=== PATIENT | female | born 1925 | race Caucasian/White ===

== ENCOUNTER 2016-03-31 09:56 | Emergency (ER) | payer MEDICARE, OTHER ==
[~2016-03-31 09:56] MED LIST: /ESOM40CA; /ESOM40CA PO; /INSU7030 SC; /RISE35TA PO; /WARF3TA; ALDA25TA PO; ALDA25TA4; ALDA25TA4 OR; ALDA25TA4 PO; AMLO10TA OR; ASPI81TA83; BEN1.4DI EX; CALC12502; CALC12502 OR; CHLO5CA PO; GAS-80CH PO; GLUC5TAB3; HUMULIN N; HUMULIN N SC; HYDR10TAB PO; ICAPCAP PO; IMIP25TA2 PO; IMMODIUM; IMMODIUM PO; INSUH10VL SC; INSUNSD SC; LIDO5DIS EXT; LOTREL; LOTRISONE TOP; MIRALEX PO; MULTCAP PO; MULTIVIT; NASONEX; NEXI40CA PO; NORV5TAB PO; NYSTATIN OINT TOP; PERC5TAB8 PO; PRIL40CA PO; SIME125C OR; TOFR25TA PO; TRAM50TA2 OR; TYLE325T5 PO; ULTR50TA PO; VITAMIN B COMPLE1 PO; [UNRECOGNIZED DRUG - CODE] PO; apresoline PO; centrum silver PO; namenda PO
--- NOTE | 2016-03-31 11:08 | REP ---
LUMBAR SPINE, FIVE VIEWS: HISTORY: Paresthesias. There is no acute fracture. The intervertebral discs are decreased in height consistent with disc degeneration. Osteophytes are present on L3 through S1. There is narrowing of the L3-4 through L5-S1 facet joints. There are 3 mm of grade 1 spondylolisthesis of L4 on 5. The bony structure is osteopenic. There is scoliosis convex to the right. IMPRESSION: Degenerative change as described above. Signed by Roby Marie MD 03/31/2016 11:13 A
[2016-03-31] MEDS ORDERED: ACETAMINOPHEN 325 MG TAB As Ordered ONE (12:26)
--- NOTE | 2016-03-31 14:50 | EDDOCDS ---
Nurse's Notes [facility] Name: Perla Bhatia Age: 89 yrs Sex: Female : 1925 Arrival Date: 03/31/2016 Time: 09:56 Bed TR8 Private MD: Diagnosis: Spinal stenosis, lumbosacral region Presentation: 03/31 10:07 Presenting complaint: EMS states: Right leg pain/numbness since last night. Is able to mcp move leg. Adult Sepsis Screening: The patient does not have new or worsening altered mentation. Patient's respiratory rate is less than 22. Systolic blood pressure is greater than 100. Patient has a qSOFA score of 0- Negative Sepsis Screen. Suicide/Homicide risk assessment- the patient denies having any suicidal and/or homicidal ideations and does not present with any other emotional, behavioral or mental health complaints. Status: Patient is not a service representative or dependent. Transition of care: patient was not received from another setting of care. 10:07 Acuity: KOFI Level [address] [facility] 10:07 Method Of Arrival: Ambulance [facility] Triage Assessment: 10:20 General: Appears uncomfortable, Behavior is cooperative. Pain: Denies pain. mcp Neurological: No deficits noted. Respiratory: Airway is patent Respiratory effort is even, unlabored. Derm: Skin is pink, warm & dry. Musculoskeletal: Circulation, motion, and sensation intact pedal pulse strong, right leg warm to touch. Pt states leg is numb. Historical: - Allergies: no known allergies; - Home Meds: 1. amlodipine 5 mg Oral tab 1 tab twice daily 2. hydrochlorothiazide/spironolactone 25/25 2 tab daily 3. hydralazine 10 mg Oral tab 1 tab 2 times per day 4. tramadol 50 mg Oral tab 1 tab every 6 hours 5. librium 10mg daily 6. BenGay Ultra Strength topical topical three times a day 7. Tylenol 325 mg oral tab 2 tabs every 4-6 hours 8. Humulin N 18units in am 15 units at night Sub-Q 9. Nystatin Topical as needed - PMHx: Hypertension; Diabetes - IDDM: controlled; kidney failure; Dementia; Sleep Apnea w/ CPAP; Spinal Stenosis; - PSHx: ; Colon Resection; Cholecystectomy; Tonsillectomy; Hysterectomy; Carpal Tunnel Repair- Left; Appendectomy; Cataract Surgery- Bilateral; - The history from nurses notes was reviewed: and elements of the historical information I have obtained differs from that reported to nursing. - Social history: Smoking status: Patient states was never smoker of tobacco. No barriers to communication noted, The patient speaks fluent Icelandic. - : The pt / caregiver states he / she is not on anticoagulants. Home medication list is obtained from family members. - Hospitalizations: : No recent hospitalization is reported. - Exposure Risk Screening:: None identified. - Immunization history:: All immunizations up-to-date. - Family history: Not pertinent. - Social history:: the patient is a non-smoker, the patient does not drink alcohol. Screenin:19 Screening information is obtained from the patient, family members. Fall risk: At risk kcs due to age, gait disturbance, The following interventions are performed due to a positive Fall Risk Screen: Fall Risk is added to Special Handling on the patient Summary Screen. A Fall Risk Bracelet was applied to the patient. Side Rails are placed in the up position. A Call Mendoza is given with instruction to call for help when getting out of bed. Fall Alert bracelet is placed on the patient. Assistance ADL's: requires no assistance with activities of daily living. Abuse/DV Screen: The patient / caregiver reports he/she is: not in a situation that causes fear, pain or injury. Nutritional screening: No deficits noted. Advance Directives: Currently, there is a health care proxy, Daughter - Kinza Bhatia. There is an active DNR order but there is no copy available at this time. There is no living will. There is an active Power of Professor Of Biblical Studies, Michael Butterfield - [id number]. home support is adequate. 12:06 Fall Risk. kcs Assessment: 11:25 General: Appears in no apparent distress, comfortable, Behavior is appropriate for age, ms18 cooperative, pleasant. Pain: Denies pain. Neurological: Level of Consciousness is awake, alert, obeys commands, Oriented to person, place, time, Moves all extremities. Speech is normal, Facial symmetry appears normal, Reports that her R leg feels cold and heavy. Pt's R leg feels warm and the pt is able to move her R leg with no problems. Respiratory: Airway is patent Respiratory effort is even, unlabored. Derm: Skin is pink, warm & dry. 11:35 General: Pt ambulated with walker with no assistance. Pt was able to get out of bed, ms18 walk with a walker, and get back in bed with no problems at this time. Pt in no acute distress. Will continue to monitor pt. Dr. Tejada witnessed pt ambulate with walker. . 12:32 General: Appears in no apparent distress, comfortable, Behavior is appropriate for age, ms18 cooperative, pleasant. General: Physical therapy is here to evaluate the pt. Pain: Location: right leg Pain currently is 10 out of 10 on a pain scale. Neurological: Level of Consciousness is awake, alert, obeys commands, Oriented to person, place, time, PT having trouble remembering her daughter's birthday, but knows her own. Pt has a history of dementia and daughter states that it seems to be worsening since she has been here. Explained to daughter that it could be the different environment and new people.. Respiratory: No deficits noted. Derm: Skin is pink, warm & dry. 13:34 General: Appears in no apparent distress, comfortable, Behavior is appropriate for age, ms18 cooperative, pleasant. Neurological: Level of Consciousness is awake, alert, obeys commands. Respiratory: Airway is patent Respiratory effort is even, unlabored. Derm: Skin is pink, warm & dry. normal. Vital Signs: 10:09 BP 190 / 81; Pulse 72; Resp 18; Temp 96.0(O); Pulse Ox 97% on R/A; Weight 81.65 kg (R); dem1 Height 5 ft. 3 in. (160.02 cm) (R); Pain 8/10; 11:25 BP 169 / 76; Pulse 63; Resp 18; Pulse Ox 95% on R/A; Pain 0/10; ms18 13:39 BP 199 / 83 (auto/); ms18 13:40 Pulse 68 MON; Pulse Ox 96% ; ms18 13:40 Temp 98.6(O); ms18 10:09 Body Mass Index 31.89 (81.65 kg, 160.02 cm) [facility] Vitals: 10:09 Log In Time N/A - ambulance arrival. [facility] ED Course: 09:57 Patient visited by Kitty Montana, [employer]. deg 09:57 Patient moved to Waiting deg 09:58 Patient moved to 5 deg 10:10 Patient visited by Thelma Meehan. dem1 10:10 Triage Initiated mcp 10:10 Pt greeted and oriented to ED. Patient advised of names of staff involved in care, [facility] location of call mendoza, wait times and NPO status. Patient has correct armband on for positive identification. Bed in low position. Call light in reach. Side rails up X2. 10:16 Johnny Tejaad MD is Attending Physician. pc 10:22 Patient visited by Perla Gonzales RN. mcp 10:25 Patient visited by Johnny Tejada MD. pc 11:13 Spine. Lumbosacral, Complete Returned. EDMS 11:14 Patient visited by Katerine Matthews RN. ms18 11:15 Patient visited by Jayla Blanco. lr2 11:15 Assisted with bedpan. lr2 11:16 The patient / caregiver is instructed regarding the plan of care and ED course. Report kcs given to Katerine Matthews RN. 11:17 Katerine Matthews RN is Primary Nurse. ms18 11:25 Property :Personal belongings accompany Pt. ms18 11:35 Patient visited by Katerine Matthews RN. ms18 11:55 Spine. Lumbosacral, Complete Returned. EDMS 12:21 Patient visited by Thelma Meehan. dem1 12:21 Assisted with bedpan. Cleaned of incontinence. Linen changed. dem1 12:31 Patient visited by Katerine Matthews RN. ms18 12:59 [facility] Payment Agreement was scanned into [employer] and attached to record. jp5 13:16 Patient visited by Thelma Meehan. dem1 13:16 Diet: Patient given regular meal. dem1 13:22 Monet Reddy MD is Referral Physician. pc 13:33 Patient visited by Katerine Matthews RN. ms18 13:34 No IV's were initiated during this patient's visit. No procedures done that require ms18 assistance. 13:57 Patient moved to [place] [id number] Administered Medications: 12:31 Drug: Acetaminophen 650 mg [acetaminophen 325 mg tablet (2 tabs)] Route: PO; ms18 Order Results: Radiology Order: Spine. Lumbosacral, Complete Test: Spine. Lumbosacral, Complete REASON FOR EXAMINATION: radicular paraesthesias ; LUMBAR SPINE, FIVE VIEWS:; ; HISTORY: Paresthesias.; ; There is no acute fracture. The intervertebral discs are decreased in height; consistent with disc degeneration. Osteophytes are present on L3 through S1.; There is narrowing of the L3-4 through L5-S1 facet joints. There are 3 mm of; grade 1 spondylolisthesis of L4 on 5. The bony structure is osteopenic. There; is scoliosis convex to the right.; ; IMPRESSION:; ; Degenerative change as described above.; ; ; Signed by; Roby Marie MD 03/31/2016 11:13 A; Outcome: 13:22 Discharge ordered by Provider. 13:34 Discharge Assessment: Patient awake and alert. obeys commands, patient administered ms18 narcotics - no. The following High Risk Discharge criteria are identified: None. Discharged to home via ambulance, with family. Condition: good Condition: stable Condition: improved. Discharge instructions given to family, Instructed on discharge instructions, follow up and referral plans. Demonstrated understanding of instructions, Pt was receptive of discharge instructions/ teaching. No special radiology studies were completed. 14:49 Patient left the ED. ms18 Signatures: Dispatcher [employer] EDMS Johnny Tejada MD MD pc Sleeman, Kacey, RN RN Kitty Lagos, [employer] Unit deg Perla Gonzales RN RN Thelma Bell Mallory, RN RN ms18 Vivian Parrish Laura lr2 Corrections: (The following items were deleted from the chart) 10:10 10:09 BP 190 / 81; Pulse 72bpm; Resp 18bpm; Pulse Ox 97% RA; Temp 96.0F Oral; Height 5 dem1 ft. 3 in.; Pain 8/10; dem1 MTDD
--- NOTE | 2016-03-31 14:50 | EDDOCDS ---
Physician Documentation [facility] Name: Perla Bhatia Age: 89 yrs Sex: Female : 1925 Arrival Date: 03/31/2016 Time: 09:56 Bed TR8 Private MD: Disposition: 03/31 13:20 Critical Care: Critical care not applicable. pc Disposition: 03/31/16 13:22 Discharged to Home/Self Care. Impression: Spinal stenosis, lumbosacral region. - Condition is Stable. - Discharge Instructions: Paresthesia. - Medication Reconciliation, Local Pharmacy Hours form. - Follow up: Monet Reddy MD; When: Call to arrange an appointment; Reason: Continuance of care. - Problem is an acute exacerbation. - Symptoms have improved. HPI: 10:30 This 89 yrs old Female presents to ER via Ambulance with complaints of Leg pc Pins and [place]. 10:30 The history is obtained from the patient. She has been having trouble walking on her pc right leg for a few days, without known injury. She describes it as numb and cold, but it is warm to touch and she withdraws to pain. She states it feels like it is asleep. 10:31 At their worst, the symptoms were moderate. In the emergency department, the symptoms pc are unchanged. The patient has experienced similar episodes in the past, several times. The patient has not recently seen a physician. Historical: - Allergies: no known allergies; - Home Meds: 1. amlodipine 5 mg Oral tab 1 tab twice daily 2. hydrochlorothiazide/spironolactone 25/25 2 tab daily 3. hydralazine 10 mg Oral tab 1 tab 2 times per day 4. tramadol 50 mg Oral tab 1 tab every 6 hours 5. librium 10mg daily 6. BenGay Ultra Strength topical topical three times a day 7. Tylenol 325 mg oral tab 2 tabs every 4-6 hours 8. Humulin N 18units in am 15 units at night Sub-Q 9. Nystatin Topical as needed - PMHx: Hypertension; Diabetes - IDDM: controlled; kidney failure; Dementia; Sleep Apnea w/ CPAP; Spinal Stenosis; - PSHx: ; Colon Resection; Cholecystectomy; Tonsillectomy; Hysterectomy; Carpal Tunnel Repair- Left; Appendectomy; Cataract Surgery- Bilateral; - The history from nurses notes was reviewed: and elements of the historical information I have obtained differs from that reported to nursing. - Social history: Smoking status: Patient states was never smoker of tobacco. No barriers to communication noted, The patient speaks fluent Portuguese. - : The pt / caregiver states he / she is not on anticoagulants. Home medication list is obtained from family members. - Hospitalizations: : No recent hospitalization is reported. - Exposure Risk Screening:: None identified. - Immunization history:: All immunizations up-to-date. - Family history: Not pertinent. - Social history:: the patient is a non-smoker, the patient does not drink alcohol. ROS: 10:33 All systems are negative except as listed. pc Exam: 10:33 General Appearance: no acute distress, alert. pc 10:33 EENT: normal eye inspection, ears, nose and throat normal, pharynx normal, mucous membranes moist 10:33 Neck: The exam reveals no acute abnormalities. ROM is normal and painless. No nuchal rigidity is noted.. 10:33 Respiratory: no respiratory distress, normal breath sounds. 10:33 CVS: regular pulse rate, regular rhythm, normal S1 and S2, no murmurs, strong peripheral pulses. 10:33 Abdomen: soft, non-tender, no organomegaly, normal bowel sounds. 10:33 Back: normal inspection. 10:33 Skin: skin color is normal, warm, dry. 10:33 Extremities: grossly normal except: noted in the right leg and left leg: mild stasis dermatitis of both legs, with 1+ pitting edema, mild erythema. The right leg is warm to touch, equal to the left. Pulses are palpable both LEs. 10:33 Neuro: oriented x 3, cranial nerves normal as tested, no motor deficits, no sensory deficits. 10:33 Psych: normal mood. Vital Signs: 10:09 BP 190 / 81; Pulse 72; Resp 18; Temp 96.0(O); Pulse Ox 97% on R/A; Weight 81.65 kg / dem1 180.01 lbs (R); Height 5 ft. 3 in. (160.02 cm) (R); Pain 8/10; 11:25 BP 169 / 76; Pulse 63; Resp 18; Pulse Ox 95% on R/A; Pain 0/10; ms18 13:39 BP 199 / 83 (auto/); ms18 13:40 Pulse 68 MON; Pulse Ox 96% ; ms18 13:40 Temp 98.6(O); ms18 10:09 Body Mass Index 31.89 (81.65 kg, 160.02 cm) dem1 MDM: 10:26 Spine. Lumbosacral, Complete Ordered. EDMS 10:33 Differential Diagnosis: paresthesia of RLE with normal neurological and vascular exam; pc known spinal stenosis. Plan: imaging. 11:23 Spine. Lumbosacral, Complete Reviewed. pc 11:23 Ambulate Patient to Assess Patient Safety ordered. pc 12:01 Spine. Lumbosacral, Complete Reviewed. pc 12:03 PHYSICAL THERAPY EVAL ONLY+PT ordered. EDMS 12:24 Acetaminophen Tablet 650 mg PO once ordered. ms18 12:36 CONSISTENT CARBOHYDRATE+DIET ordered. EDMS 12:59 [facility] Payment Agreement was scanned into [employer] and attached to record. jp5 12:59 Financial registration complete. jp5 13:20 Data reviewed: old medical records, vital signs, nurses notes, all radiology studies pc and available results. Test interpretation: X-RAY - interpreted by Radiologist and personally reviewed, LS-Spine DDD, no acute findings. The patient has been re-examined and re-evaluated. The clinical presentation did not require any ED treatment or interventions. ED course: She is able to walk with a walker, and after a PT eval and confirmation that she could walk with a walker and navigate the stairs as in her home, she was able to be discharged home safely.. Disposition: The historical points, examination findings, and any diagnostic results supporting the provided diagnosis, were discussed with the patient or legal guardian. The need for outpatient follow up with the provider listed on their discharge instructions was discussed. They were encouraged to return to [facility], or the nearest ED, if symptoms worsen/persist, or for any other questions/concerns. Administered Medications: 12:31 Drug: Acetaminophen 650 mg [acetaminophen 325 mg tablet (2 tabs)] Route: PO; ms18 Signatures: Dispatcher [employer] EDMS Johnny Tejada MD MD pc Peters, Mary, RN RN mcp Smith, Mallory, RN RN ms18 Vivian Parrish jp5 The chart was reviewed and I authenticate all verbal orders and agree with the evaluation and treatment provided.Corrections: (The following items were deleted from the chart) 10:32 10:30 She has been having trouble walking on her right leg for a few days, without pc known injury. pc Attachments: 12:59 [facility] [place] jp5 MTDD
[2016-04-01] MEDS ORDERED: BENCRE TOP (14:44)
[2016-04-01] MEDS ORDERED: HYDR10TAB PO (14:47)
[2016-04-01] MEDS ORDERED: NYST100024 TOP (14:47)
[2016-04-01] MEDS ORDERED: INSUNSD SC ×2 (14:47)
[2016-04-01] MEDS ORDERED: CHLO10CA PO (14:48)
[2016-04-01] MEDS ORDERED: REFR0.5D8 OU (14:48)
--- NOTE | 2016-04-02 15:50 | EDDOCDS ---
Physician Documentation [facility] Name: Perla Bhatia Age: 89 yrs Sex: Female : 1925 Arrival Date: 03/31/2016 Time: 09:56 Bed TR8 Private MD: Disposition: 03/31 13:20 Critical Care: Critical care not applicable. pc Disposition: 03/31/16 13:22 Discharged to Home/Self Care. Impression: Spinal stenosis, lumbosacral region. - Condition is Stable. - Discharge Instructions: Paresthesia. - Medication Reconciliation, Local Pharmacy Hours form. - Follow up: Monet Reddy MD; When: Call to arrange an appointment; Reason: Continuance of care. - Problem is an acute exacerbation. - Symptoms have improved. HPI: 10:30 This 89 yrs old Female presents to ER via Ambulance with complaints of Leg pc Pins and [place]. 10:30 The history is obtained from the patient. She has been having trouble walking on her pc right leg for a few days, without known injury. She describes it as numb and cold, but it is warm to touch and she withdraws to pain. She states it feels like it is asleep. 10:31 At their worst, the symptoms were moderate. In the emergency department, the symptoms pc are unchanged. The patient has experienced similar episodes in the past, several times. The patient has not recently seen a physician. Historical: - Allergies: no known allergies; - Home Meds: 1. amlodipine 5 mg Oral tab 1 tab twice daily 2. hydrochlorothiazide/spironolactone 25/25 2 tab daily 3. hydralazine 10 mg Oral tab 1 tab 2 times per day 4. tramadol 50 mg Oral tab 1 tab every 6 hours 5. librium 10mg daily 6. BenGay Ultra Strength topical topical three times a day 7. Tylenol 325 mg oral tab 2 tabs every 4-6 hours 8. Humulin N 18units in am 15 units at night Sub-Q 9. Nystatin Topical as needed - PMHx: Hypertension; Diabetes - IDDM: controlled; kidney failure; Dementia; Sleep Apnea w/ CPAP; Spinal Stenosis; - PSHx: ; Colon Resection; Cholecystectomy; Tonsillectomy; Hysterectomy; Carpal Tunnel Repair- Left; Appendectomy; Cataract Surgery- Bilateral; - The history from nurses notes was reviewed: and elements of the historical information I have obtained differs from that reported to nursing. - Social history: Smoking status: Patient states was never smoker of tobacco. No barriers to communication noted, The patient speaks fluent Japanese. - : The pt / caregiver states he / she is not on anticoagulants. Home medication list is obtained from family members. - Hospitalizations: : No recent hospitalization is reported. - Exposure Risk Screening:: None identified. - Immunization history:: All immunizations up-to-date. - Family history: Not pertinent. - Social history:: the patient is a non-smoker, the patient does not drink alcohol. ROS: 10:33 All systems are negative except as listed. pc Exam: 10:33 General Appearance: no acute distress, alert. pc 10:33 EENT: normal eye inspection, ears, nose and throat normal, pharynx normal, mucous membranes moist 10:33 Neck: The exam reveals no acute abnormalities. ROM is normal and painless. No nuchal rigidity is noted.. 10:33 Respiratory: no respiratory distress, normal breath sounds. 10:33 CVS: regular pulse rate, regular rhythm, normal S1 and S2, no murmurs, strong peripheral pulses. 10:33 Abdomen: soft, non-tender, no organomegaly, normal bowel sounds. 10:33 Back: normal inspection. 10:33 Skin: skin color is normal, warm, dry. 10:33 Extremities: grossly normal except: noted in the right leg and left leg: mild stasis dermatitis of both legs, with 1+ pitting edema, mild erythema. The right leg is warm to touch, equal to the left. Pulses are palpable both LEs. 10:33 Neuro: oriented x 3, cranial nerves normal as tested, no motor deficits, no sensory deficits. 10:33 Psych: normal mood. Vital Signs: 10:09 BP 190 / 81; Pulse 72; Resp 18; Temp 96.0(O); Pulse Ox 97% on R/A; Weight 81.65 kg / dem1 180.01 lbs (R); Height 5 ft. 3 in. (160.02 cm) (R); Pain 8/10; 11:25 BP 169 / 76; Pulse 63; Resp 18; Pulse Ox 95% on R/A; Pain 0/10; ms18 13:39 BP 199 / 83 (auto/); ms18 13:40 Pulse 68 MON; Pulse Ox 96% ; ms18 13:40 Temp 98.6(O); ms18 10:09 Body Mass Index 31.89 (81.65 kg, 160.02 cm) dem1 MDM: 10:26 Spine. Lumbosacral, Complete Ordered. EDMS 10:33 Differential Diagnosis: paresthesia of RLE with normal neurological and vascular exam; pc known spinal stenosis. Plan: imaging. 11:23 Spine. Lumbosacral, Complete Reviewed. pc 11:23 Ambulate Patient to Assess Patient Safety ordered. pc 12:01 Spine. Lumbosacral, Complete Reviewed. pc 12:03 PHYSICAL THERAPY EVAL ONLY+PT ordered. EDMS 12:24 Acetaminophen Tablet 650 mg PO once ordered. ms18 12:36 CONSISTENT CARBOHYDRATE+DIET ordered. EDMS 12:59 [facility] Payment Agreement was scanned into [facility] and attached to record. jp5 12:59 Financial registration complete. jp5 13:20 Data reviewed: old medical records, vital signs, nurses notes, all radiology studies pc and available results. Test interpretation: X-RAY - interpreted by Radiologist and personally reviewed, LS-Spine DDD, no acute findings. The patient has been re-examined and re-evaluated. The clinical presentation did not require any ED treatment or interventions. ED course: She is able to walk with a walker, and after a PT eval and confirmation that she could walk with a walker and navigate the stairs as in her home, she was able to be discharged home safely.. Disposition: The historical points, examination findings, and any diagnostic results supporting the provided diagnosis, were discussed with the patient or legal guardian. The need for outpatient follow up with the provider listed on their discharge instructions was discussed. They were encouraged to return to [facility], or the nearest ED, if symptoms worsen/persist, or for any other questions/concerns. Administered Medications: 12:31 Drug: Acetaminophen 650 mg [acetaminophen 325 mg tablet (2 tabs)] Route: PO; ms18 Signatures: Dispatcher [employer] EDMS Johnny Tejada MD MD pc Peters, Mary, RN RN mcp Smith, Mallory, RN RN [id number] Vivian Parrish jp5 The chart was reviewed and I authenticate all verbal orders and agree with the evaluation and treatment provided.Corrections: (The following items were deleted from the chart) 10:32 10:30 She has been having trouble walking on her right leg for a few days, without pc known injury. pc Attachments: 12:59 [facility] Payment Agreement jp5 Chart Complete MTDD
--- NOTE | 2016-04-02 15:50 | EDDOCDS ---
Nurse's Notes [facility] Name: Perla Bhatia Age: 89 yrs Sex: Female : 1925 Arrival Date: 03/31/2016 Time: 09:56 Bed TR8 Private MD: Diagnosis: Spinal stenosis, lumbosacral region Presentation: 03/31 10:07 Presenting complaint: EMS states: Right leg pain/numbness since last night. Is able to mcp move leg. Adult Sepsis Screening: The patient does not have new or worsening altered mentation. Patient's respiratory rate is less than 22. Systolic blood pressure is greater than 100. Patient has a qSOFA score of 0- Negative Sepsis Screen. Suicide/Homicide risk assessment- the patient denies having any suicidal and/or homicidal ideations and does not present with any other emotional, behavioral or mental health complaints. 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 Transition of care: patient was not received from another setting of care. 10:07 Acuity: KOFI Level 3 [facility] 10:07 Method Of Arrival: Ambulance [facility] Triage Assessment: 10:20 General: Appears uncomfortable, Behavior is cooperative. Pain: Denies pain. mcp Neurological: No deficits noted. Respiratory: Airway is patent Respiratory effort is even, unlabored. Derm: Skin is pink, warm & dry. Musculoskeletal: Circulation, motion, and sensation intact pedal pulse strong, right leg warm to touch. Pt states leg is numb. Historical: - Allergies: no known allergies; - Home Meds: 1. amlodipine 5 mg Oral tab 1 tab twice daily 2. hydrochlorothiazide/spironolactone 25/25 2 tab daily 3. hydralazine 10 mg Oral tab 1 tab 2 times per day 4. tramadol 50 mg Oral tab 1 tab every 6 hours 5. librium 10mg daily 6. BenGay Ultra Strength topical topical three times a day 7. Tylenol 325 mg oral tab 2 tabs every 4-6 hours 8. Humulin N 18units in am 15 units at night Sub-Q 9. Nystatin Topical as needed - PMHx: Hypertension; Diabetes - IDDM: controlled; kidney failure; Dementia; Sleep Apnea w/ CPAP; Spinal Stenosis; - PSHx: ; Colon Resection; Cholecystectomy; Tonsillectomy; Hysterectomy; Carpal Tunnel Repair- Left; Appendectomy; Cataract Surgery- Bilateral; - The history from nurses notes was reviewed: and elements of the historical information I have obtained differs from that reported to nursing. - Social history: Smoking status: Patient states was never smoker of tobacco. No barriers to communication noted, The patient speaks fluent Belarusian. - : The pt / caregiver states he / she is not on anticoagulants. Home medication list is obtained from family members. - Hospitalizations: : No recent hospitalization is reported. - Exposure Risk Screening:: None identified. - Immunization history:: All immunizations up-to-date. - Family history: Not pertinent. - Social history:: the patient is a non-smoker, the patient does not drink alcohol. Screenin:19 Screening information is obtained from the patient, family members. Fall risk: At risk kcs due to age, gait disturbance, The following interventions are performed due to a positive Fall Risk Screen: Fall Risk is added to Special Handling on the patient Summary Screen. A Fall Risk Bracelet was applied to the patient. Side Rails are placed in the up position. A Call Mendoza is given with instruction to call for help when getting out of bed. Fall Alert bracelet is placed on the patient. Assistance ADL's: requires no assistance with activities of daily living. Abuse/DV Screen: The patient / caregiver reports he/she is: not in a situation that causes fear, pain or injury. Nutritional screening: No deficits noted. Advance Directives: Currently, there is a health care proxy, Daughter - Kinza Bhatia. There is an active DNR order but there is no copy available at this time. There is no living will. There is an active Power of Sampler [employer]active Waste, Michael Butterfield - [id number]. home support is adequate. 12:06 Fall Risk. kcs Assessment: 11:25 General: Appears in no apparent distress, comfortable, Behavior is appropriate for age, ms18 cooperative, pleasant. Pain: Denies pain. Neurological: Level of Consciousness is awake, alert, obeys commands, Oriented to person, place, time, Moves all extremities. Speech is normal, Facial symmetry appears normal, Reports that her R leg feels cold and heavy. Pt's R leg feels warm and the pt is able to move her R leg with no problems. Respiratory: Airway is patent Respiratory effort is even, unlabored. Derm: Skin is pink, warm & dry. 11:35 General: Pt ambulated with walker with no assistance. Pt was able to get out of bed, ms18 walk with a walker, and get back in bed with no problems at this time. Pt in no acute distress. Will continue to monitor pt. Dr. Tejada witnessed pt ambulate with walker. . 12:32 General: Appears in no apparent distress, comfortable, Behavior is appropriate for age, ms18 cooperative, pleasant. General: Physical therapy is here to evaluate the pt. Pain: Location: right leg Pain currently is 10 out of 10 on a pain scale. Neurological: Level of Consciousness is awake, alert, obeys commands, Oriented to person, place, time, PT having trouble remembering her daughter's birthday, but knows her own. Pt has a history of dementia and daughter states that it seems to be worsening since she has been here. Explained to daughter that it could be the different environment and new people.. Respiratory: No deficits noted. Derm: Skin is pink, warm & dry. 13:34 General: Appears in no apparent distress, comfortable, Behavior is appropriate for age, ms18 cooperative, pleasant. Neurological: Level of Consciousness is awake, alert, obeys commands. Respiratory: Airway is patent Respiratory effort is even, unlabored. Derm: Skin is pink, warm & dry. normal. Vital Signs: 10:09 BP 190 / 81; Pulse 72; Resp 18; Temp 96.0(O); Pulse Ox 97% on R/A; Weight 81.65 kg (R); dem1 Height 5 ft. 3 in. (160.02 cm) (R); Pain 8/10; 11:25 BP 169 / 76; Pulse 63; Resp 18; Pulse Ox 95% on R/A; Pain 0/10; ms18 13:39 BP 199 / 83 (auto/); ms18 13:40 Pulse 68 MON; Pulse Ox 96% ; ms18 13:40 Temp 98.6(O); ms18 10:09 Body Mass Index 31.89 (81.65 kg, 160.02 cm) [facility] Vitals: 10:09 Log In Time N/A - ambulance arrival. [facility] ED Course: 09:57 Patient visited by Kitty Montana, Collections And Archives Director. deg 09:57 Patient moved to Waiting deg 09:58 Patient moved to 5 deg 10:10 Patient visited by Thelma Meehan. dem1 10:10 Triage Initiated mcp 10:10 Pt greeted and oriented to ED. Patient advised of names of staff involved in care, [facility] location of call mendoza, wait times and NPO status. Patient has correct armband on for positive identification. Bed in low position. Call light in reach. Side rails up X2. 10:16 Johnny Tejada MD is Attending Physician. pc 10:22 Patient visited by Perla Gonzales RN. mcp 10:25 Patient visited by Johnny Tejada MD. pc 11:13 Spine. Lumbosacral, Complete Returned. EDMS 11:14 Patient visited by Katerine Matthews RN. ms18 11:15 Patient visited by Jayla Blanco. lr2 11:15 Assisted with bedpan. lr2 11:16 The patient / caregiver is instructed regarding the plan of care and ED course. Report kcs given to Katerine Matthews RN. 11:17 Katerine Matthews RN is Primary Nurse. ms18 11:25 Property :Personal belongings accompany Pt. ms18 11:35 Patient visited by Katerine Matthews RN. ms18 11:55 Spine. Lumbosacral, Complete Returned. EDMS 12:21 Patient visited by Thelma Meehan. dem1 12:21 Assisted with bedpan. Cleaned of incontinence. Linen changed. dem1 12:31 Patient visited by Katerine Matthews RN. ms18 12:59 [facility] Payment Agreement was scanned into [email or web address] and attached to record. jp5 13:16 Patient visited by Thelma Meehan. dem1 13:16 Diet: Patient given regular meal. dem1 13:22 Monet Reddy MD is Referral Physician. pc 13:33 Patient visited by Katerine Matthews RN. ms18 13:34 No IV's were initiated during this patient's visit. No procedures done that require ms18 assistance. 13:57 Patient moved to [place] [id number] Administered Medications: 12:31 Drug: Acetaminophen 650 mg [acetaminophen 325 mg tablet (2 tabs)] Route: PO; ms18 Order Results: Radiology Order: Spine. Lumbosacral, Complete Test: Spine. Lumbosacral, Complete REASON FOR EXAMINATION: radicular paraesthesias ; LUMBAR SPINE, FIVE VIEWS:; ; HISTORY: Paresthesias.; ; There is no acute fracture. The intervertebral discs are decreased in height; consistent with disc degeneration. Osteophytes are present on L3 through S1.; There is narrowing of the L3-4 through L5-S1 facet joints. There are 3 mm of; grade 1 spondylolisthesis of L4 on 5. The bony structure is osteopenic. There; is scoliosis convex to the right.; ; IMPRESSION:; ; Degenerative change as described above.; ; ; Signed by; Roby Marie MD 03/31/2016 11:13 A; Outcome: 13:22 Discharge ordered by Provider. 13:34 Discharge Assessment: Patient awake and alert. obeys commands, patient administered ms18 narcotics - no. The following High Risk Discharge criteria are identified: None. Discharged to home via ambulance, with family. Condition: good Condition: stable Condition: improved. Discharge instructions given to family, Instructed on discharge instructions, follow up and referral plans. Demonstrated understanding of instructions, Pt was receptive of discharge instructions/ teaching. No special radiology studies were completed. 14:49 Patient left the ED. ms18 Signatures: Dispatcher [employer] EDMS Johnny Tejada MD MD pc Sleeman, Kacey, RN RN Kitty Lagos, Collections And Archives Director Unit deg Perla Gonzales RN RN Thelma Bell Mallory, RN RN ms18 Vivian Parrish Laura lr2 Corrections: (The following items were deleted from the chart) 10:10 10:09 BP 190 / 81; Pulse 72bpm; Resp 18bpm; Pulse Ox 97% RA; Temp 96.0F Oral; Height 5 dem1 ft. 3 in.; Pain 8/10; dem1 Chart Complete MTDD
== END 2016-03-31 14:49 | disposition home or self-care (01) ==
LOC: M ED 09:56
DX: M48.07 Spinal stenosis, lumbosacral region (principal); I12.9 Hypertensive chronic kidney disease with stage 1 through stage 4 chronic kidney disease, or unspecified chronic kidney disease; E11.9 Type 2 diabetes mellitus without complications; N18.9 Chronic kidney disease, unspecified; G47.30 Sleep apnea, unspecified; F03.90 Unspecified dementia, unspecified severity, without behavioral disturbance, psychotic disturbance, mood disturbance, and anxiety; Z79.4 Long term (current) use of insulin; Z79.899 Other long term (current) drug therapy

== ENCOUNTER 2016-04-01 09:27 | Inpatient (IN) | payer MEDICARE, OTHER ==
[~2016-04-01] VITALS: Ht 157.5 cm; Wt 76.8 kg
[2016-04-01 10:37] LABS: BASO % 0.5 % (0.0-1.0); EOS # 0.1 K/mm3 (0.0-0.50); EOS % 0.7 % (0.0-3.0); LARGE UNSTAINED CELL # 0.2 K/mm3 (0.0-0.4); LARGE UNSTAINED CELL % 2.3 % (0.0-4.0); LYMPH # 1.1 K/mm3 (1.5-4.5); LYMPH % 11.6 % (24.0-44.0); MEAN CORPUSCULAR HEMOGLOBIN 31.1 pg (27.0-33.0); MEAN CORPUSCULAR HGB CONC 32.3 g/dl (32.0-36.5); MEAN CORPUSCULAR VOLUME 96.5 fl (80.0-96.0); MONO # 0.5 K/mm3 (0.0-0.8); MONO % 4.8 % (0.0-5.0); NEUTROPHILS # 7.6 K/mm3 (1.8-7.7); NEUTROPHILS % 80.2 % (36.0-66.0); PLATELET COUNT, AUTOMATED 341 k/mm3 (150-450); RED CELL DISTRIBUTION WIDTH 12.8 % (11.5-14.5); WHITE BLOOD COUNT 9.4 K/mm3 (4.0-10.0)
[2016-04-01 10:45] LABS: INR 0.99
[2016-04-01 10:54] LABS: CALCIUM LEVEL 8.5 MG/DL (8.8-10.2); CREATININE FOR GFR 1.44 MG/DL (0.55-1.02); GLOMERULAR FILTRATION RATE 36.6 (>32); POTASSIUM SERUM 4.3 MEQ/L (3.5-5.1)
--- NOTE | 2016-04-01 11:08 | REP ---
Clinical: Chest pain . Comparison: 09/01/2014 . Findings: The mediastinum and cardiac silhouette are stable and within normal limits for portable technique. The lung dawson are clear without acute consolidation, effusion, or pneumothorax. Skeletal structures are intact. Impression: Normal portable chest x-ray Signed by Rohit Hidalgo MD 04/01/2016 10:59 A
--- NOTE | 2016-04-01 11:28 | REP ---
CT HEAD WITHOUT CONTRAST: HISTORY: Facial numbness. COMPARISON: 02/25/2014. Areas of decreased attenuation are present in the periventricular white matter. This represents small vessel ischemic disease. There is no intraparenchymal hemorrhage, mass or midline shift. The ventricular system and cortical sulci are dilated consistent with mild volume loss. There is no extracerebral collection. The visualized sinuses are clear. IMPRESSION: 1. Small vessel ischemic disease.2. Mild volume loss. Signed by Roby Marie MD 04/01/2016 11:43 A
[2016-04-01] MEDS ORDERED: BENCRE TOP (14:44)
[2016-04-01] MEDS ORDERED: NYST100024 TOP (14:47)
[2016-04-01] MEDS ORDERED: HYDR10TAB PO (14:47)
[2016-04-01] MEDS ORDERED: INSUNSD SC ×2 (14:47)
[2016-04-01] MEDS ORDERED: REFR0.5D8 OU (14:48)
[2016-04-01] MEDS ORDERED: CHLO10CA PO (14:48)
[2016-04-01] MEDS ORDERED: DEXTROSE 50% 50 ML SYRINGE IV PRN (15:45)
[2016-04-01] MEDS ORDERED: GLUCAGON FOR INJ 1 MG VIAL (J1610) SC PRN (15:45)
[2016-04-01] MEDS ORDERED: GLUCOSE 4 GM CHEW TABLET PO PRN (15:45)
[2016-04-01] MEDS ORDERED: ASPIRIN 325 MG TAB PO ONE (17:00)
[2016-04-01 18:40] VITALS: BP 138/58
[2016-04-01] MEDS ORDERED: traMADol 50 MG TAB As Ordered ONE (18:40)
[2016-04-01] MEDS ORDERED: ASPIRIN 325 MG TAB As Ordered ONE (18:40)
[2016-04-01] MEDS ORDERED: HumaLOG INSULIN (NovoLOG) PER UNIT As Ordered ONE (18:42)
[2016-04-01] MEDS: traMADol 50 MG TAB PO SCH (18:43)
[2016-04-01] MEDS: HumaLOG INSULIN (NovoLOG) PER UNIT SC SCH ×2 (18:45→20:39)
--- NOTE | 2016-04-01 19:00 | REP ---
Clinical: Right-sided weakness with acute cerebral infarction. Technique: Carrasquillo scale and color Doppler evaluation using linear high frequency transducer Findings: Two-dimensional carrasquillo scale and color images demonstrate intimal thickening of the bilateral common carotid arteries along with mixed plaque material in the left common carotid artery and within the right carotid bulb and proximal internal carotid artery. Normal laminar flow is appreciated without significant narrowing. Color Doppler interrogation demonstrates normal arterial wave patterns and velocities with no significant spectral broadening. Normal flow direction is appreciated in the bilateral vertebral arteries. RIGHT (cm/s) LEFT (cm/s) ICA peak systolic velocity 83.4 70.9 ICA diastolic velocity 13.2 12.1 ECA peak systolic velocity 98.8 65.6 CCA peak systolic velocity 74.5 114.9 ICA/CCA ratio 1.12 0.62 Impression: Based on set standards narrowing falls within the less than 50% range bilaterally (right greater than left). Signed by Rohit Hidalgo MD 04/01/2016 06:51 P
--- NOTE | 2016-04-01 19:10 | REPUSA ---
CLINICAL HISTORY: Facial numbness. TECHNIQUE: MRI of the brain was performed utilizing multiple sequences in axial, coronal and sagittal planes without IV contrast material. FINDINGS: Note is made of multiple focal areas of restricted diffusion involving left thalamus at left occipita l lobe. This includes a large area in the occipital lobe measuring approximately 15 mm. This is josefina tible with lacunar infarcts likely of embolic nature. The sella and parasellar region are unremarkable in appearance. The corpus callosum and cerebellar to nsils are of normal configuration and position. There are no intra or extra-axial collections. There is no mass effect or midline shift. There is no evidence of hematoma formation. There is no hydroceph alus. The visualized arterial structures demonstrate normal appearing flow voids. The seventh and eighth ne rve bundles are visualized and are unremarkable in appearance. Foci of T2/FLAIR hyperintensity are noted in the bilateral periventricular and subcortical white neeraj er compatible with mild chronic white matter ischemic changes. Generalized proportionate dilatation of ventricles and sulci is present compatible with age-appropria te parenchymal atrophy. IMPRESSION: 1. Multiple focal areas of restricted diffusion involving left thalamus at left occipital lobe. This includes a larger subcortical area in the occipital lobe measuring approximately 15 mm. This is comp atible with acute lacunar infarcts likely of embolic nature. 2. Generalized age-appropriate parenchymal atrophy. 3. Mild chronic white matter microvascular ischemic changes. Discussed with Dr. Braun. Thank you for your kind referral of this patient. We appreciate the opportunity to participate in thi s patient's care.
--- NOTE | 2016-04-01 19:20 | REPUSA ---
CLINICAL HISTORY: FACIAL NUMBNESS TECHNIQUE: Three dimensional [id number] angiography is performed of the [place]. The mele dy was performed without IV contrast agent. FINDINGS: The supraclinoid portions of the internal carotid arteries are of normal shape. The normal bifurcation is seen. The middle cerebral arteries are unremarkable in appearance. The posterior circu lation is visualized and shows no evidence of occlusion or aneurysm formation. The basilar tip is see n and shows no aneurysm formation. There is no evidence of beading to suggest vasculitis. IMPRESSION: MRA of the [place] is within normal limits. Thank you for your kind referral of this patient.
[2016-04-01 19:32] VITALS: BP 154/72
--- NOTE | 2016-04-01 19:54 | ECGEPIP ---
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
[2016-04-01] MEDS: **hydrALAZINE** 10 MG TAB PO SCH (20:43)
[2016-04-02] VITALS (7 sets, daily range): BP systolic 136–176; BP diastolic 64–82
[2016-04-02] MEDS: traMADol 50 MG TAB PO SCH ×5 (00:06→20:24)
[2016-04-02] MEDS ORDERED: amLODIPine 5 MG TAB PO SCH ×2 (01:07→09:00)
[2016-04-02] MEDS ORDERED: amLODIPine 5 MG TAB As Ordered ONE (01:07)
[2016-04-02 06:53] LABS: MEAN CORPUSCULAR HEMOGLOBIN 31.8 pg (27.0-33.0); MEAN CORPUSCULAR HGB CONC 33.3 g/dl (32.0-36.5); MEAN CORPUSCULAR VOLUME 95.7 fl (80.0-96.0); RED CELL DISTRIBUTION WIDTH 12.9 % (11.5-14.5); WHITE BLOOD COUNT 8.4 K/mm3 (4.0-10.0)
[2016-04-02 06:54] LABS: CALCIUM LEVEL 8.9 MG/DL (8.8-10.2); CREATININE FOR GFR 1.21 MG/DL (0.55-1.02); GLOMERULAR FILTRATION RATE 44.7 (>32)
[2016-04-02] MEDS ORDERED: HumaLOG INSULIN (NovoLOG) PER UNIT As Ordered ONE ×2 (07:40→12:17)
[2016-04-02] MEDS: HumaLOG INSULIN (NovoLOG) PER UNIT SC SCH ×4 (07:47→20:20)
--- NOTE | 2016-04-02 07:58 | HPEPDOC ---
General Date of Admission Apr 01, 2016 at 15:16 Primary Care Physician: MARQUISE ARMENDARIZ MD Attending Physician: ROMEO ECHAVARRIA DO Chief Complaint The patient is a 89-year-old female admitted with a reason for visit of Rt Sided Weakness. Source: Patient, Family History of Present Illness Pt is a 89 y/o F with a pmhx of dementia, HTN, IDDM-controlled, colon and uterine cancer, CKD, presenting with 2 day history of RLE numbness and R face, RUE numbness beginning this AM. The pt was seen yesterday (03/31) at [facility] ED for RLE numbness and discharged with a ddx of spinal stenosis. She returned today because she had additional R face and RUE numbness. This has never happened before. Pt describes this sensation as her leg and arms feeling heavy and denies any pain, tingling, or burning. Pt denies any trauma or illness around the onset of her RLE numbness and states she was just standing in the kitchen reaching when her leg suddenly felt heavy and numb. The pt reports still being able to move her legs and walk. At baseline, the pt uses a walker to ambulate but is able to easily complete all of her ADLs. Pt reports the numbness was initially her entire leg but is now just numb on the lateral aspect of her RLE. Pt denies any associated LOC, seizures, chest pain, palpitations, dyspnea, syncope, changes in vision, facial droop, unsteadiness, light-headedness. Pt has urge incontinence at baseline. Pt also has c/o of R face and RUE numbness that began acutely this AM. Her daughter reports that the pt had associated slurring of speech that has since improved. Pt reports full ROM of hands but describes her arms feeling like a "stone." Home Medications Scheduled (Bengay Greaseless 10-15 %) 1 Cre Cre CRE TOP TID (Reported) APPLY TO BACK Acetaminophen (Tylenol) 325 Mg Tab 650 MG PO TID (Reported) Amlodipine Besylate (Norvasc) 5 Mg Tab 5 MG PO DAILY (Reported) Aspirin (Aspirin) 325 Mg Tab 325 MG PO DAILY Carboxymethylcellulose Sodium (Refresh Tears) 0.5 % Scott 0.5 % OU BID (Reported ) Chlordiazepoxide (Chlordiazepoxide HCl) 10 Mg Cap 10 MG PO DAILY (Reported) Hctz/Spironolactone (Aldactazide 25-25 mg) 1 Tab Tab 2 TAB PO DAILY (Reported) Hydralazine HCl (Hydralazine HCl) 10 Mg Tab 10 MG PO BID (Reported) Insulin Human NPH (Humulin N) 1 Units/0.01 Ml Susp 18 UNITS SC DAILY (Reported ) Insulin Human NPH (Humulin N) 1 Units/0.01 Ml Susp 15 UNITS SC QPM (Reported) Nystatin (Nystatin Powder) 100,000 Unit/Gm Pow 0 TOP DAILY (Reported) APPLY UNDER BREASTS Rosuvastatin (Crestor) 10 Mg Tab 20 MG PO QHS Tramadol HCl (Ultram) 50 Mg Tab 50 MG PO QID (Reported) Allergies Coded Allergies: Penicillins (Unverified Allergy, Unknown, 05/16/12) Penicillins Cross Reactors (Unverified Allergy, Unknown, 05/16/12) Amoxicillin (Unverified Adverse Reaction, Intermediate, RASH, 03/07/14) Past Medical History Medical History Essential hypertension, 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, urinating cancer status post hysterectomy, dementia, BILL on CPAP, insulin-dependent diabetes mellitus, osteopenia, hypertension, GERD, bilateral DVTs in 2009, overactive bladder with incontinence, anxiety, depression, CKD stage III with baseline creatinine 1.1, IBS Surgical History Tonsillectomy 1940, appendectomy 1939, 194 and 1953, wrist surgery 1987, hysterectomy 1981, colon resection 1998, cholecystectomy 1997, carpal tunnel release in 2002, bladder surgery in 2010 Social History * Smoker: non-smoker Alcohol: denies Drugs: denies Recent Travel/Sick Contacts: Denies: Recent sick contacts Psychosocial History: Anxiety Review of Symptoms Constitutional: Reports: Weakness, Denies: Chills, Fever, Malaise Eyes: Denies: Pain, Vision change ENT: Denies: Dysphagia, Head Aches Skin: Denies: Rash Pulmonary: Denies: Cough, Dyspnea Cardiovascular: Denies: Chest Pain, Lt Headedness, Palpitations Gastrointestinal: Denies: Abdominal Pain, Constipation, Diarrhea, Nausea, Vomiting Genitourinary: Reports: Frequency, Incontinence (urge incontinence (chronic)), Denies: Dysuria Hematologic: Denies: Bruising Musculoskeletal: Denies: Arm Pain, Back Pain, Leg Pain, Muscle Pain, Neck Pain Neurological: Reports: Confusion, Numbness, Weakness, Denies: Change in speech Psych: Reports: Anxiety, Mood Normal Physical Examination General Exam: Positive: Alert, Cooperative, No Acute Distress Eye Exam: Positive: Conjunctiva & lids normal, EOMI, PERRLA, Negative: Sclera icteric ENT Exam: Positive: Atraumatic, Mucous membr. moist/pink, Pharynx Normal Neck Exam: Positive: Supple, Negative: thyromegaly Chest Exam: Positive: Clear to auscultation, Normal air movement, Negative: Diminished, Rales, Rhonchi, Wheezing Heart Exam: Positive: Murmurs, Normal S1, Normal S2, Rate Normal, Regular Rhythm, Rubs Abdomen Exam: Positive: Normal bowel sounds, Soft, Tenderness, Negative: Hepatospenomegaly Extremity Exam: Positive: Normal pulses, Negative: Clubbing, Edema Skin Exam: Positive: Nl turgor and temperature Neuro Exam: Positive: Cranial Nerves 3-12 NL, Normal Speech (slightly tangential), Normal Tone, Other (Dysdidochokinesia negative, proprioception intact bilaterally in LE, finger to nose test negative, ), Reflexes 2+ (patellar , achilles ), Sensation Intact, Strength at 5/5 X4 ext Psych Exam: Positive: Mental status NL, Mood NL Vital Signs Vital Signs Label Value Date Time Patient Temperature 99.4 degrees F 04/01/161839 Temperature Source Tympanic 04/01/161839 Pulse 63 04/01/161839 Respiratory Rate 18 bpm 04/01/161839 Blood Pressure Assessment 138/58 (84) 04/01/161839 Bedside Pulse Oximetry 95 % 04/01/161839 Laboratory Data Labs 24H Laboratory Tests 2 04/01/16 10:25: Activated Partial Thromboplast Time 37.9H, Anion Gap 7L, White Blood Count 9.4, Red Blood Count 3.99L, Hemoglobin 12.4, Hematocrit 38.5, Mean Corpuscular Volume 96.5H, Mean Corpuscular Hemoglobin 31.1, Mean Corpuscular Hemoglobin Concent 32.3, Red Cell Distribution Width 12.8, Platelet Count 341, Neutrophils (%) (Auto) 80.2H, Lymphocytes (%) (Auto) 11.6L, Monocytes (%) (Auto) 4.8, Eosinophils (%) (Auto) 0.7, Basophils (%) (Auto) 0.5, Neutrophils # (Auto) 7.6, Lymphocytes # (Auto) 1.1L, Monocytes # (Auto) 0.5, Eosinophils # (Auto) 0.1, Basophils # (Auto) 0.0, Blood Urea Nitrogen 30H, Creatinine 1.44H, Sodium Level 139, Potassium Level 4.3, Chloride Level 102, Carbon Dioxide Level 30, Calcium Level 8.5L, Glomerular Filtration Rate 36.6, Large Unclassified Cells # 0.2, Large Unclassified Cells % 2.3, Prothromb Time International Ratio 0.99, Prothrombin Time 13.2 04/01/16 12:01: Urine Amorphous Sediment , Urine Appearance CLEAR, Urine Color YELLOW, Urine pH 6.0, Urine Specific [place] 1.019, Urine Protein NEGATIVE, Urine Glucose (UA) 1+ H, Urine Ketones NEGATIVE, Urine Urobilinogen 0.2, Urine Bilirubin NEGATIVE, Urine Leukocyte Esterase 1+H, Urine Bacteria (Auto) 1+H, Urine Blood NEGATIVE, Urine Calcium Carbonate Cryst(Auto) , Urine Calcium Oxalate Cryst (Auto) , Urine Calcium Phosphate Carin (Auto) , Urine Cellular Casts , Urine Cystine Crystals , Urine Granular Casts (Auto) , Urine Hyaline Casts (Auto) 1, Urine Leucine Crystals , Urine Mucus (Auto) SMALL, Urine Nitrite NEGATIVE, Urine Oval Fat Bodies (Auto) , Urine RBC (Auto) 5H, Urine Renal Epithelial Cells , Urine Sperm (Auto) , Urine Squamous Epithelial Cells 0, Urine Transitional Epithelial Cells , Urine Trichomonas (Auto) , Urine Triple Phosphate Cryst (Auto) , Urine Tyrosine Crystals , Urine Uric Acid Crystals (Auto) , Urine WBC (Auto) 9H, Urine Waxy Casts (Auto) , Urine Yeast-Like Cells (Auto) CBC/BMP Laboratory Tests 04/01/16 10:25 Calcium Level 8.5 L, Red Blood Count 3.99 L, Mean Corpuscular Volume 96.5 H, Mean Corpuscular Hemoglobin 31.1, Mean Corpuscular Hemoglobin Concent 32.3, Red Cell Distribution Width 12.8, Neutrophils (%) (Auto) 80.2 H, Lymphocytes (%) ( Auto) 11.6 L, Monocytes (%) (Auto) 4.8, Eosinophils (%) (Auto) 0.7, Basophils (% ) (Auto) 0.5, Neutrophils # (Auto) 7.6, Lymphocytes # (Auto) 1.1 L, Monocytes # (Auto) 0.5, Eosinophils # (Auto) 0.1, Basophils # (Auto) 0.0 Microbiology Microbiology 04/01/16 Urine Culture, Received Pending Problems (1) Numbness on right side Status: Acute Problem Text: Pt has 2 day history of RLE numbness and weakness and 1 day hx of R face and RUE numbness with associated slurring of speech without pain. The pt has hx of IDDM and HTN which are both well controlled per her daughter, the primary caregiver. Noncontrast CT of head was performed in the ED that showed no evidence of a acute CVA. On physical exam, pt had no focal neurologic signs and her sensation was intact bilaterally. Pt's muscle strength was also equal bilaterally. No carotid bruits were heard. At this time, we suspect the pt had a transient ischemic attack vs seizures vs complex migraine. Plan to get MRI of brain, EEG, carotid doppler u/s. Will monitor neurologic signs Q4, give IV fluids as needed, encourage ambulation. (2) IDDM (insulin dependent diabetes mellitus) Status: Chronic Problem Text: start pt on sliding scale insulin. (3) Anxiety Status: Chronic Problem Text: Will d/c home chlordiazepoxide for now. (4) HTN (hypertension) Status: Chronic Problem Text: Continue current htn medications (5) CKD (chronic kidney disease) Status: Chronic Problem Text: Monitor chemistries daily AM. (6) History of DVT (deep vein thrombosis) Status: Chronic (7) DVT prophylaxis Status: Acute Problem Text: Enoxaparin, TEDS, Sequentials Plan / VTE VTE Prophylaxis Ordered?: Yes Plan Diet: Continue Current Activity: Encourage Ambulation Therapy: PT Diagnostics: Repeat Labs in AM GME ATTESTATION GME ATTESTATION My preceptor for this patient encounter was physically present in the building during the encounter and was fully available. As needed, all aspects of the patient interview, examination, medical decision making process, and medical care plan development were reviewed and approved by the preceptor. Preceptor is aware and concurs with the plan as stated in the body of this note and will attest to such by his/her cosignature. ATTENDING NOTE I have both independently examined this patient as well as reviewed documentation. I have discussed the findings in detail with the author the findings and plan of treatment as documented in the note. I will continue to follow the patient and offer further guidance to the patients care as necessary. CHANDLER QUEEN DO Apr 01, 2016 15:58 ROMEO ECHAVARRIA DO Apr 19, 2016 14:35
--- NOTE | 2016-04-02 08:02 | ECGEPIP ---
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
[2016-04-02] MEDS ORDERED: traMADol 50 MG TAB As Ordered ONE ×3 (08:27→12:15)
[2016-04-02] MEDS: amLODIPine 10 MG TAB PO SCH (08:30)
[2016-04-02] MEDS: **hydrALAZINE** 10 MG TAB PO SCH ×2 (08:30→20:24)
[2016-04-02] MEDS ORDERED: CLOPIDOGREL 75 MG TAB As Ordered ONE (12:15)
[2016-04-02] MEDS: CLOPIDOGREL 75 MG TAB PO SCH (12:22)
--- NOTE | 2016-04-02 12:27 | IPN ---
DATE: 04/02/2016 OVERNIGHT EVENTS: Perla continues to report that she is having right-sided facial "hardness" without associated numbness, tingling, or focal weakness. Her MRI of her brain did demonstrate multiple areas of restricted diffusion which include the left thalamus and left occipital lobes most consistent with acute lacunar infarcts. Her carotid ultrasounds were unremarkable with less than 50% stenosis bilaterally. She has no acute concerns to address this morning. PHYSICAL EXAMINATION: VITAL SIGNS: Temperature 96.4 degrees Fahrenheit, pulse 74, respiratory rate 18 , blood pressure 136/77, oxygen saturation 92% in room air. Weight 75.7 kg. GENERAL: She is resting in bed comfortably. She is alert and oriented times three, however she does repeat herself frequently and is forgetful of parts of the conversation that she had had just moments prior. HEENT: Pupils equal, round, reactive to light and accommodation. Mucous membranes are moist. No areas of trauma. Sclerae are anicteric. NECK: No thyromegaly. No appreciable jugular venous distention (JVD). CARDIOVASCULAR SYSTEM: Regular rate and rhythm. No rubs, murmurs, or gallops. LUNGS: Clear bilaterally. ABDOMEN: Soft and nontender, nondistended. EXTREMITIES: Without edema. Capillary refill is less than 3 seconds. Skin is warm and well-perfused. She has marked swelling of her proximal interphalangeal (PIP) and distal interphalangeal (DIP) joints on her hands bilaterally. NEUROLOGIC: Cranial nerves II-XII intact bilaterally. Normal and symmetric strength and tone. LABORATORY STUDIES: CBC: White blood cell count 8.4, hemoglobin 12.8, hematocrit 38.4, platelet count 337. Basic metabolic profile: Sodium 139, potassium 4.0, chloride 101, bicarbonate 30, BUN 25, creatinine 1.21, glucose 123, calcium 8.9. Lipid panel: Triglycerides 131, total cholesterol 149, LDL 60.8, HDL 62. Finger stick blood glucoses 102-136. IMAGING STUDIES: Brain MRI: Multiple focal areas of restricted diffusion involving the left thalamus and at the left occipital lobe, this includes a larger subcortical area in the occipital lobe measuring 15 mm, compatible with acute lacunar infarcts of likely embolic nature. Generalized age appropriate parenchymal atrophy and mild chronic white matter. Microvascular ischemic changes. Brain MRA within normal limits. Bilateral carotid Duplex ultrasounds. Based on set standards of narrowing, falls within less than 50% range bilaterally. ASSESSMENT: Ms. Bhatia is an 89-year-old female with multiple comorbidities placing her at elevated risk of thromboembolic phenomenon who presented with a 1 day history of right-sided numbness involving her upper extremity, lower extremity, and face, but without objective neurologic findings. She does have evidence of lacunar infarct consistent with the distribution of her symptoms on MRI. She is hemodynamically stable. PLAN: 1. 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 Her carotid ultrasounds have been unremarkable. She does not have significant cardiac findings on which to justify an acute echocardiogram. Of note, she did have an echocardiogram in 2009 that was essentially unremarkable for any significant valvular disease. She has been started on high intensity statin therapy as well as Plavix. Physical therapy (PT) and occupational therapy (OT) have been ordered and she is undergoing every 8 hours neurologic checks. Anticipated discharge tomorrow if she does well overnight tonight. She has undergone an EEG evaluation, results of which are currently pending. 2. Hypertension. Her blood pressures have been ranging in the 130-160 range and she is being provided her home antihypertensives of Norvasc and hydralazine. As her blood pressures have been borderline high, will permit for permissive hypertension in the setting of new acute ischemic CVA.Expect normalization of pressures within the next 24-48 hours without requiring any dosing adjustments. 3. Type 2 diabetes, insulin dependent. Her A1c most recently was 6.3 and her glucoses during this admission have been acceptable. Will continue her on insulin sliding scale coverage. She may resume her outpatient insulin regimen with basal coverage upon discharge. Hypoglycemic protocol has been instituted. She has been placed on a carbohydrate consistent diet. 4. Chronic back pain. Her home dose of tramadol has been continued. 5. Mild dementia at baseline. No current intervention required. 6. Prophylaxis. She has been placed on thromboembolism deterrents (TEDs) and sequential compression devices (SCDs). My preceptor for this patient encounter was Dr. Kuldeep Barr. The preceptor was physically present in the building during the encounter and was fully available. As needed, all aspects of the patient interview, examination, medical decision making process, and medical care plan development were reviewed and approved by the preceptor. The preceptor is aware and concurs with the plan as stated in the body of this note and will attest to such by his cosignature. Attending Physician Note: I saw and examined this patient. The case was reviewed with the RPA and the PGY-3. STEPHANIE
--- NOTE | 2016-04-02 17:19 | EDDOCDS ---
Nurse's Notes [facility] Name: Perla Anton Age: 89 yrs Sex: Female : 1925 Arrival Date: 04/01/2016 Time: 09:27 Bed Admit Hold Private MD: Monet Reddy Diagnosis: Weakness Presentation: 04/01 09:43 Presenting complaint: daughter states evaluated yesterday for right leg numbness jjr beginning this past Monday, pt woke with right hand and right side facial numbness this morning. Adult Sepsis Screening: The patient does not have new or worsening altered mentation. Patient's respiratory rate is less than 22. Systolic blood pressure is greater than 100. Patient has a qSOFA score of 0- Negative Sepsis Screen. Suicide/Homicide risk assessment- the patient denies having any suicidal and/or homicidal ideations and does not present with any other emotional, behavioral or mental health complaints. Status: Patient is not a representative phlebotomy services or dependent. Transition of care: patient was not received from another setting of care. 09:43 Acuity: KOFI Level 3 jjr 09:43 Method Of Arrival: Walkin/Carried/Asstd jjr Triage Assessment: 09:47 General: Appears in no apparent distress. Pain: Denies pain. Neurological: Reports jjr numbness. 11:43 Neurological: Industrial Economics Teacher are equal bilaterally checked at time of last note. jjr Historical: - Allergies: no known allergies; - Home Meds: 1. amlodipine 5 mg Oral tab 1 tab twice daily (Last dose: 04/01/2016) 2. Humulin N 18units in am 15 units at night Sub-Q (Last dose: 04/01/2016) 3. hydralazine 10 mg Oral tab 1 tab 2 times per day (Last dose: 04/01/2016) 4. hydrochlorothiazide/spironolactone 25/25 2 tab daily (Last dose: 04/01/2016) 5. librium 10mg daily (Last dose: 04/01/2016) 6. tramadol 50 mg Oral tab 1 tab every 6 hours (Last dose: 04/01/2016) 7. Tylenol 325 mg Oral tab 2 tabs every 4-6 hours (Last dose: 04/01/2016) - PMHx: Dementia; Diabetes - IDDM: controlled; Hypertension; Spinal Stenosis; kidney failure; Sleep Apnea w/ CPAP; Cancer, Colon; - PSHx: ; Colon Resection; Cholecystectomy; Tonsillectomy; Hysterectomy; Carpal Tunnel Repair- Left; Appendectomy; Cataract Surgery- Bilateral; - Social history: Smoking status: Patient states was never smoker of tobacco. No barriers to communication noted, The patient speaks fluent Romanian. - Family history: Not pertinent. - : The pt / caregiver states he / she is not on anticoagulants. Home medication list is obtained from family members. - Exposure Risk Screening:: None identified. Screenin:01 Screening information is obtained from the patient. Fall risk: No risks identified. pml Assistance ADL's: requires no assistance with activities of daily living. Abuse/DV Screen: The patient / caregiver reports he/she is: not in a situation that causes fear, pain or injury. Nutritional screening: No deficits noted. Advance Directives: Currently, there is no health care proxy. home support is adequate. Assessment: 10:01 General: Appears in no apparent distress, comfortable, Behavior is appropriate for age, pml cooperative. Pain: Denies pain. Neurological: Level of Consciousness is awake, alert, Oriented to person, place, time, Industrial Economics Teacher are equal bilaterally Facial symmetry appears normal, Pupils are PERRLA, Numbness in right cheek, right jaw, right arm and right leg however able to discern touch at all sites of reported numbness. . Cardiovascular: Capillary refill < 3 seconds Rhythm is sinus rhythm No ectopy. Respiratory: Airway is patent Respiratory effort is even, unlabored. GI: Abdomen is non- distended obese. Derm: Skin is pink, warm & dry. Musculoskeletal: Circulation, motion, and sensation intact Capillary refill < 3 seconds Range of motion intact in all extremities. 11:18 General: resting comfortably on stretcher, reports no change in symptoms. resps easy pml and unlabored, skin p/w/d. 12:07 General: Appears in no apparent distress, Behavior is appropriate for age, cooperative. pml Pain: Denies pain. Neurological: Level of Consciousness is awake, alert, Oriented to person, place, time. Cardiovascular: Capillary refill < 3 seconds Rhythm is sinus rhythm No ectopy. Derm: Skin is pink, warm & dry. 13:47 General: resting on stretcher, resps easy and unlabored, family at bedside. awaiting pml plan from specialist. . 15:00 General: Appears in no apparent distress, comfortable, Behavior is appropriate for age, pml cooperative. Pain: Denies pain. Neurological: Level of Consciousness is awake, alert, Oriented to person, place, time, Numbness in right leg and right arm and right jaw and right cheek. Cardiovascular: Capillary refill < 3 seconds Rhythm is sinus rhythm No ectopy. Derm: Skin is pink, warm & dry. 16:32 General: resting on stretcher, voices no complaints. resps easy and unlabored, skin pml p/w/d. sinus rhythm on monitor/. 17:45 General: Pt to MRI. pml 18:12 General: report to emery RN. pml Vital Signs: 09:29 Pulse 94; Resp 18; Temp 96.7(O); Pulse Ox 96% on R/A; Weight 81.65 kg; Height 5 ft. 2 dem1 in. (157.48 cm) (R); 09:34 Pulse 84 MON; Pulse Ox 97% ; pml 09:34 BP 113 / 74 (auto/); pml 09:49 BP 162 / 69; jjr 09:49 Pulse 84 MON; Pulse Ox 97% ; pml 09:49 BP 118 / 74 (auto/); pml 10:04 Pulse 80 MON; Pulse Ox 96% ; pml 10:04 BP 114 / 73 (auto/); pml 10:19 Pulse 82 MON; Pulse Ox 97% ; pml 10:19 BP 127 / 73 (auto/); pml 10:34 Pulse 80 MON; Pulse Ox 97% ; pml 10:34 BP 132 / 75 (auto/); pml 10:49 Pulse 80 MON; Pulse Ox 97% ; pml 10:49 BP 116 / 67 (auto/); pml 11:04 Pulse 94 MON; Pulse Ox 93% ; pml 11:04 BP 116 / 66 (auto/); pml 13:17 Pulse 66 MON; Pulse Ox 96% ; pml 13:17 BP 185 / 70 (auto/); pml 14:34 BP 133 / 60 (auto/); pml 14:35 Pulse 68 MON; Pulse Ox 96% ; pml 14:49 BP 142 / 65 (auto/); pml 14:50 Pulse 66 MON; Pulse Ox 95% ; pml 15:04 BP 171 / 67 (auto/); pml 15:05 Pulse 70 MON; Pulse Ox 96% ; pml 15:19 BP 154 / 113 (auto/); pml 15:20 Pulse 72 MON; Pulse Ox 97% ; pml 15:49 BP 158 / 67 (auto/); pml 15:50 Pulse 68 MON; Pulse Ox 97% ; pml 16:04 BP 194 / 72 (auto/); pml 16:05 Pulse 64 MON; Pulse Ox 95% ; pml 16:21 Pulse 62 MON; Pulse Ox 96% ; pml 16:21 BP 167 / 64 (auto/); pml 09:29 Body Mass Index 32.92 (81.65 kg, 157.48 cm) [facility] Vitals: 09:29 Log In Time: April 01, 2016 at 09:27. dem1 09:29 RN notified that patient meets Red Flag criteria. dem1 ED Course: 09:28 Patient visited by Thelma Meehan. dem1 09:28 Patient moved to Waiting dem1 09:29 Monet Reddy MD is Private Physician. dem1 09:33 Patient visited by Thelma Meehan. dem1 09:34 Ludy Matthews RN is Primary Nurse. dem1 09:34 Mary Ledesma,RN is Primary Nurse. dem1 09:34 Patient moved to 12 dem1 09:36 Cele Braun MD is Attending Physician. fg 09:36 Patient visited by Ceel Braun MD. fg 09:44 Triage Initiated jjr 10:01 The patient / caregiver is instructed regarding the plan of care and ED course. Patient pml has correct armband on for positive identification. Placed in gown. Bed in low position. Call light in reach. Side rails up X2. labourers on. Pulse ox on. NIBP on. 10:03 Patient visited by Mary Ledesma,VANDANA. pml 10:17 EKG done. (by ED staff). Reviewed by Cele Braun MD. ct3 10:18 Patient visited by Shannan Zapata PCA. ct3 10:25 Inserted saline lock: 20 gauge in left antecubital area and blood collected. The dy patient tolerated the procedure well. 10:25 Labs drawn. (by ED staff). Sent per order to lab. dy 10:28 Basic Metabolic Profile Sent. dy 10:29 CBC with Diff Sent. dy 10:29 Partial Thromboplastin Time Sent. dy 10:29 Prothrombin Time Profile\E\INR Sent. dy 10:34 [facility] Payment Agreement was scanned into [employer] and attached to record. mm15 11:02 Patient visited by Shannan Zapata PCA. ct3 11:13 Chest, 1 View Returned. EDMS 11:19 Patient visited by Mary Ledesma,VANDANA. pml 11:59 CT Head Without Contrast Returned. EDMS 12:02 Assisted with bedpan. ct3 12:02 Urine Culture Sent. ct3 12:02 Urinalysis Sent. ct3 12:03 Patient visited by Shannan Zapata PCA. ct3 12:08 Patient visited by Mary Ledesma RN. pml 12:43 Patient visited by Shannan Zapata PCA. ct3 13:47 Patient visited by Mary Ledesma RN. pml 14:03 Assisted with bedpan. dem1 14:04 Patient visited by Thelma Meehan. dem1 14:32 Chelsea Hernandez is Hospitalizing Provider. fg 15:24 Patient visited by Mary Ledesma RN. pml 16:34 Patient visited by Mary Ledesma RN. pml 17:32 Patient moved to MRI dem1 18:12 Patient moved to 19 pml 18:18 Patient moved to Admit Hold dy 19:08 Duplex,carotid (complete) Returned. EDMS 20:03 ELECTROCARDIOGRAM ADULT Returned. EDMS 20:09 MRI Brain without Contrast Returned. EDMS 20:09 -MRA-Brain without contrast Returned. EDMS 20:56 EKG done. (by ED staff). Reviewed by Chelsea Hernandez. kb5 22:38 Primary Nurse role handed off by Ludy Matthews RN kb5 04/02 03:22 Primary Nurse role handed off by Mary Ledesma RN cz 08:41 ELECTROCARDIOGRAM ADULT Returned. EDMS 14:56 T-Sheet-- Draft Copy was scanned into [employer] and attached to record. gb Order Results: Lab Order: Basic Metabolic Profile; SPEC'M 04/01/16 10:25 Test: GLUCOSE, FASTING; Value: 288; Range: 83-110; Abnormal: Above high normal; Units: MG/DL; Status: F Test: BLOOD UREA NITROGEN; Value: 30; Range: 7-18; Abnormal: Above high normal; Units: MG/DL; Status: F Test: CREATININE FOR GFR; Value: 1.44; Range: 0.55-1.02; Abnormal: Above high normal; Units: MG/DL; Status: F Test: GLOMERULAR FILTRATION RATE; Value: 36.6; Range: >32; Status: F Test: SODIUM LEVEL; Value: 139; Range: 136-145; Units: MEQ/L; Status: F Test: POTASSIUM SERUM; Value: 4.3; Range: 3.5-5.1; Units: MEQ/L; Status: F Test: CHLORIDE LEVEL; Value: 102; Range: 98-107; Units: MEQ/L; Status: F Test: CARBON DIOXIDE LEVEL; Value: 30; Range: 21-32; Units: MEQ/L; Status: F Test: ANION GAP; Value: 7; Range: 8-16; Abnormal: Below low normal; Units: MEQ/L; Status: F Test: CALCIUM LEVEL; Value: 8.5; Range: 8.8-10.2; Abnormal: Below low normal; Units: MG/DL; Status: F Test Note: ; Units are mL/min/1.73 m2 Chronic Kidney Disease Staging per NKF: Stage I & II GFR >=60 Normal to Mildly Decreased Stage III GFR 30-59 Moderately Decreased Stage IV GFR 15-29 Severely Decreased Stage V GFR <15 Very Little GFR Left ESRD GFR <15 on TIE TAMPER Lab Order: CBC with Diff; SPEC'M 04/01/16 10:25 Test: WHITE BLOOD COUNT; Value: 9.4; Range: 4.0-10.0; Units: K/mm3; Status: F Test: RED BLOOD COUNT; Value: 3.99; Range: 4.00-5.40; Abnormal: Below low normal; Units: M/mm3; Status: F Test: HEMOGLOBIN; Value: 12.4; Range: 12.0-16.0; Units: g/dl; Status: F Test: HEMATOCRIT; Value: 38.5; Range: 36.0-47.0; Units: %; Status: F Test: MEAN CORPUSCULAR VOLUME; Value: 96.5; Range: 80.0-96.0; Abnormal: Above high normal; Units: fl; Status: F Test: MEAN CORPUSCULAR HEMOGLOBIN; Value: 31.1; Range: 27.0-33.0; Units: pg; Status: F Test: MEAN CORPUSCULAR HGB CONC; Value: 32.3; Range: 32.0-36.5; Units: g/dl; Status: F Test: RED CELL DISTRIBUTION WIDTH; Value: 12.8; Range: 11.5-14.5; Units: %; Status: F Test: PLATELET COUNT, AUTOMATED; Value: 341; Range: 150-450; Units: k/mm3; Status: F Test: NEUTROPHILS %; Value: 80.2; Range: 36.0-66.0; Abnormal: Above high normal; Units: %; Status: F Test: LYMPH %; Value: 11.6; Range: 24.0-44.0; Abnormal: Below low normal; Units: %; Status: F Test: MONO %; Value: 4.8; Range: 0.0-5.0; Units: %; Status: F Test: EOS %; Value: 0.7; Range: 0.0-3.0; Units: %; Status: F Test: BASO %; Value: 0.5; Range: 0.0-1.0; Units: %; Status: F Test: LARGE UNSTAINED CELL %; Value: 2.3; Range: 0.0-4.0; Units: %; Status: F Test: NEUTROPHILS #; Value: 7.6; Range: 1.8-7.7; Units: K/mm3; Status: F Test: LYMPH #; Value: 1.1; Range: 1.5-4.5; Abnormal: Below low normal; Units: K/mm3; Status: F Test: MONO #; Value: 0.5; Range: 0.0-0.8; Units: K/mm3; Status: F Test: EOS #; Value: 0.1; Range: 0.0-0.50; Units: K/mm3; Status: F Test: BASO #; Value: 0.0; Range: 0.0-0.2; Units: K/mm3; Status: F Test: LARGE UNSTAINED CELL #; Value: 0.2; Range: 0.0-0.4; Units: K/mm3; Status: F Lab Order: Partial Thromboplastin Time; SPEC'M 04/01/16 10:25 Test: PARTIAL THROMBOPLASTIN TIME; Value: 37.9; Range: 26.6-37.1; Abnormal: Above high normal; Units: SECONDS; Status: F Lab Order: Prothrombin Time Profile\E\INR; SPEC'M 04/01/16 10:25 Test: PROTHROMBIN TIME; Value: 13.2; Range: 12.3-14.5; Units: SECONDS; Status: F Test: INR; Value: 0.99; Status: F Test Note: ; THERAPUTIC HUMAN INR VALUES INDICATIONS NORMAL RANGES PROPHYLAXIS/TREATMENT OF: VENOUS THROMBOSIS 2.0-3.0 PULMONARY EMBOLISM 2.0-3.0 PREVENTION OF SYSTEMIC EMBOLISM FROM: TISSUE HEART VALVES 2.0-3.0 ACUTE MYOCARDIAL INFARCTION 2.0-3.0 VALVULAR HEART DISEASE 2.0-3.0 ATRIAL FIBRILLATION 2.0-3.0 MECHANICAL VALVES(HIGH RISK) 2.5-3.5 RECURRENT MYOCARDIAL INFARCTION 2.5-3.5 Lab Order: Urinalysis; SPEC'M 04/01/16 12:01 Test: APPEARANCE, URINE; Value: CLEAR; Range: CLEAR; Status: F Test: COLOR, URINE; Value: YELLOW; Range: YELLOW; Status: F Test: PH,URINE; Value: 6.0; Range: 5.0-9.0; Units: UNITS; Status: F Test: SPECIFIC GRAVITY URINE AUTO; Value: 1.019; Range: 1.002-1.035; Status: F Test: PROTEIN, URINE AUTO; Value: NEGATIVE; Range: NEGATIVE; Units: mg/dL; Status: F Test: GLUCOSE, URINE (UA) AUTO; Value: 1+; Range: NEGATIVE; Abnormal: Above high normal; Units: mg/dL; Status: F Test: KETONE, URINE AUTO; Value: NEGATIVE; Range: NEGATIVE; Units: mg/dL; Status: F Test: UROBILINOGEN, URINE AUTO; Value: 0.2; Range: 0.0-2.0; Units: mg/dL; Status: F Test: BILIRUBIN, URINE AUTO; Value: NEGATIVE; Range: NEGATIVE; Status: F Test: NITRITE, URINE AUTO; Value: NEGATIVE; Range: NEGATIVE; Status: F Test: LEUKOCYTE ESTERASE, URINE AUTO; Value: 1+; Range: NEGATIVE; Abnormal: Above high normal; Status: F Test: BLOOD, URINE BLOOD; Value: NEGATIVE; Range: NEGATIVE; Status: F Test: WBC, URINE AUTO; Value: 9; Range: 0-3; Abnormal: Above high normal; Units: /HPF; Status: F Test: RBC, URINE AUTO; Value: 5; Range: 0-3; Abnormal: Above high normal; Units: /HPF; Status: F Test: BACTERIA, URINE AUTO; Value: 1+; Range: NEGATIVE; Abnormal: Above high normal; Status: F Test: SQUAMOUS EPITHELIAL CELL UR AU; Value: 0; Range: 0-6; Units: /HPF; Status: F Test: MUCUS, URINE; Value: SMALL; Range: NEGATIVE; Status: F Test: HYALINE CAST, URINE AUTO; Value: 1; Range: 0-1; Units: /LPF; Status: F Lab Order: Fingerstick Blood Sugar; 04/01/16 18:32 Test: BEDSIDE GLUCOSE; Value: 102; Range: 83-110; Units: MG/DL; Status: F Lab Order: COMPLETE BLOOD COUNT; 04/02/16 06:16 Test: WHITE BLOOD COUNT; Value: 8.4; Range: 4.0-10.0; Units: K/mm3; Status: F Test: RED BLOOD COUNT; Value: 4.02; Range: 4.00-5.40; Units: M/mm3; Status: F Test: HEMOGLOBIN; Value: 12.8; Range: 12.0-16.0; Units: g/dl; Status: F Test: HEMATOCRIT; Value: 38.4; Range: 36.0-47.0; Units: %; Status: F Test: MEAN CORPUSCULAR VOLUME; Value: 95.7; Range: 80.0-96.0; Units: fl; Status: F Test: MEAN CORPUSCULAR HEMOGLOBIN; Value: 31.8; Range: 27.0-33.0; Units: pg; Status: F Test: MEAN CORPUSCULAR HGB CONC; Value: 33.3; Range: 32.0-36.5; Units: g/dl; Status: F Test: RED CELL DISTRIBUTION WIDTH; Value: 12.9; Range: 11.5-14.5; Units: %; Status: F Test: PLATELET COUNT, AUTOMATED; Value: 337; Range: 150-450; Units: k/mm3; Status: F Lab Order: BASIC METABOLIC PROFILE; 04/02/16 06:16 Test: GLUCOSE, FASTING; Value: 123; Range: 83-110; Abnormal: Above high normal; Units: MG/DL; Status: F Test: BLOOD UREA NITROGEN; Value: 25; Range: 7-18; Abnormal: Above high normal; Units: MG/DL; Status: F Test: CREATININE FOR GFR; Value: 1.21; Range: 0.55-1.02; Abnormal: Above high normal; Units: MG/DL; Status: F Test: GLOMERULAR FILTRATION RATE; Value: 44.7; Range: >32; Status: F Test: SODIUM LEVEL; Value: 139; Range: 136-145; Units: MEQ/L; Status: F Test: POTASSIUM SERUM; Value: 4.0; Range: 3.5-5.1; Units: MEQ/L; Status: F Test: CHLORIDE LEVEL; Value: 101; Range: 98-107; Units: MEQ/L; Status: F Test: CARBON DIOXIDE LEVEL; Value: 30; Range: 21-32; Units: MEQ/L; Status: F Test: ANION GAP; Value: 8; Range: 8-16; Units: MEQ/L; Status: F Test: CALCIUM LEVEL; Value: 8.9; Range: 8.8-10.2; Units: MG/DL; Status: F Test Note: ; Units are mL/min/1.73 m2 Chronic Kidney Disease Staging per NKF: Stage I & II GFR >=60 Normal to Mildly Decreased Stage III GFR 30-59 Moderately Decreased Stage IV GFR 15-29 Severely Decreased Stage V GFR <15 Very Little GFR Left ESRD GFR <15 on TIE TAMPER Lab Order: Fingerstick Blood Sugar; 04/01/16 20:33 Test: BEDSIDE GLUCOSE; Value: 129; Range: 83-110; Abnormal: Above high normal; Units: MG/DL; Status: F Lab Order: CARDIAC RISK PROFILE; [facility]04/01/16 10:25 Test: TRIGLYCERIDES LEVEL; Value: 131; Range: <150; Units: MG/DL; Status: F Test: CHOLESTEROL LEVEL; Value: 149; Range: <200; Units: MG/DL; Status: F Test: HDL CHOLESTEROL; Value: 62; Range: >40; Units: MG/DL; Status: F Test: LDL CHOLESTEROL; Value: 60.8; Range: <100; Units: MG/DL; Status: F Test: NON-HDL-C; Value: 87; Units: MG/DL; Status: F Test: CHOLESTEROL RISK RATIO; Value: 2.403; Range: <5; Status: F Lab Order: Fingerstick Blood Sugar; ANDREI 04/02/16 11:33 Test: BEDSIDE GLUCOSE; Value: 136; Range: 83-110; Abnormal: Above high normal; Units: MG/DL; Status: F Radiology Order: CT Head Without Contrast Test: CT Head Without Contrast REASON FOR EXAMINATION: numbness RLL, RUL, R face; CT HEAD WITHOUT CONTRAST:; ; HISTORY: Facial numbness.; ; COMPARISON: 02/25/2014.; ; Areas of decreased attenuation are present in the periventricular white matter.; This represents small vessel ischemic disease. There is no intraparenchymal; hemorrhage, mass or midline shift. The ventricular system and cortical sulci are; dilated consistent with mild volume loss. There is no extracerebral collection.; The visualized sinuses are clear.; ; IMPRESSION:; ; 1. Small vessel ischemic disease.2. Mild volume loss.; ; ; Signed by; Roby Marie MD 04/01/2016 11:43 A; Radiology Order: Chest, 1 View Test: Chest, 1 View REASON FOR EXAMINATION: Chest Pain; Clinical: Chest pain .; ; Comparison: 09/01/2014 .; ; Findings:; The mediastinum and cardiac silhouette are stable and within normal limits for; portable technique. The lung dawson are clear without acute consolidation,; effusion, or pneumothorax. 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: ct; : 1925 Requested By: CELE Sherwood; Order Number: [id number] Leonard MD: Bibiana Garcia; Measurements; Intervals Yolyn; Rate: 66 P: 50; ME: 146 QRS: -1; QRSD: 101 T: 64; QT: 404; QTc: 426; Interpretive Statements; SINUS RHYTHM; SEPTAL MYOCARDIAL INFARCTION, OF INDETERMINATE AGE; NSTTW ABNORMALITY; Electronically Signed On 04-01-2016 19:53:50 EST by Bibiana Garcia; Radiology Order: -MRA-Brain without contrast Test: -MRA-Brain without contrast REASON FOR EXAMINATION: facial numbness, right UE, RLE ; ; CLINICAL HISTORY: FACIAL NUMBNESS; TECHNIQUE: Three dimensional [id number] angiography is performed of the [place]. The mele; dy was performed without IV contrast agent.; FINDINGS: The supraclinoid portions of the internal carotid arteries are of normal shape. The normal; bifurcation is seen. The middle cerebral arteries are unremarkable in appearance. The posterior circu; lation is visualized and shows no evidence of occlusion or aneurysm formation. The basilar tip is see; n and shows no aneurysm formation. There is no evidence of beading to suggest vasculitis.; IMPRESSION:; MRA of the [place] Hernandez is within normal limits.; Thank you for your kind referral of this patient.; ; Radiology Order: Duplex,carotid (complete) Test: Duplex,carotid (complete) REASON FOR EXAMINATION: Right sided numbness; Clinical: Right-sided weakness with acute cerebral infarction.; ; Technique: Carrasquillo scale and color Doppler evaluation using linear high frequency; transducer; ; Findings:; Two-dimensional carrasquillo scale and color images demonstrate intimal thickening of the; bilateral common carotid arteries along with mixed plaque material in the left; common carotid artery and within the right carotid bulb and proximal internal; carotid artery. Normal laminar flow is appreciated without significant; narrowing. Color Doppler interrogation demonstrates normal arterial wave; patterns and velocities with no significant spectral broadening. Normal flow; direction is appreciated in the bilateral vertebral arteries.; ; RIGHT (cm/s) LEFT (cm/s); ; ICA peak systolic velocity 83.4 70.9; ICA diastolic velocity 13.2 12.1; ECA peak systolic velocity 98.8 65.6; CCA peak systolic velocity 74.5 114.9; ICA/CCA ratio 1.12 0.62; ; Impression:; Based on set standards narrowing falls within the less than 50% range bilaterally; (right greater than left).; ; ; Signed by; Rohit Hidalgo MD 04/01/2016 06:51 P; Radiology Order: MRI Brain without Contrast Test: MRI Brain without Contrast REASON FOR EXAMINATION: numbness r face, RUE, RLE; ; CLINICAL HISTORY: Facial numbness.; ; TECHNIQUE: MRI of the brain was performed utilizing multiple sequences in axial, coronal and sagittal; planes without IV contrast material.; FINDINGS:; Note is made of multiple focal areas of restricted diffusion involving left thalamus at left occipita; l lobe. This includes a large area in the occipital lobe measuring approximately 15 mm. 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 The corpus callosum and cerebellar to; nsils are of normal configuration and position. There are no intra or extra-axial collections. There; is no mass effect or midline shift. There is no evidence of hematoma formation. There is no hydroceph; alus.; The visualized arterial structures demonstrate normal appearing flow voids. The seventh and eighth ne; rve bundles are visualized and are unremarkable in appearance.; Foci of T2/FLAIR hyperintensity are noted in the bilateral periventricular and subcortical white neeraj; er compatible with mild chronic white matter ischemic changes.; Generalized proportionate dilatation of ventricles and sulci is present compatible with age-appropria; te parenchymal atrophy.; IMPRESSION:; 1. Multiple focal areas of restricted diffusion involving left thalamus at left occipital lobe. This; includes a larger subcortical area in the occipital lobe measuring approximately 15 mm. 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 Generalized age-appropriate parenchymal atrophy.; 3. Mild chronic white matter microvascular ischemic changes.; ; Discussed with Dr. Braun.; ; Thank you for your kind referral of this patient. We appreciate the opportunity to participate in [facility]; s patient's care.; ; ; Radiology Order: ELECTROCARDIOGRAM ADULT Test: ELECTROCARDIOGRAM ADULT REASON FOR EXAMINATION: ? A-FIB; Stationary ECG Study; [place]; ; Test Date: 2016-04-01; Pat Name: PERLA ANTON Department:; Room: [place] [address]; Gender: F Health Insurance Assessor: GO; : 1925 Requested By: Kuldeep Barr; Order Number: [id number] Reading MD: Adriel Hernandez; Measurements; Intervals Yolyn; Rate: 62 P: 90; ME: 153 QRS: -4; QRSD: 105 T: 55; QT: 406; QTc: 415; Interpretive Statements; SINUS RHYTHM; LEFT VENTRICULAR HYPERTROPHY AND ST-T CHANGE; RULE OUT PRIOR ASMI; NO CHANGE FROM EARLIER SAME DAY; Electronically Signed On 04-02-2016 8:02:13 EST by Adriel Hernandez; Outcome: 04/01 14:34 Decision to Hospitalize by Provider. fg 04/02 17:18 Patient left the ED. ml6 Signatures: Dispatcher [employer] EDMS Javad Bryson, RN RN Martine Thorpe, Martin Reg Josue Sainz, RN RN Fawad Callaway, ORE MINER ORE MINER kb5 Ashley Hsu RN Vish Sheldon RN VANDANA ml6 Shannan Zapata, ORE MINER ORE MINER ct3 Mary LedesmaRN Thelma Garcia dem1 Nelson eYpez mm15 Cele Braun MD MD fg Corrections: (The following items were deleted from the chart) 04/01 09:33 09:29 Pulse 94bpm; Resp 18bpm; Pulse Ox 96% RA; Temp 96.7F Oral; Height 5 ft. 2 in. dem1 Reported; dem1 MTDD
--- NOTE | 2016-04-02 17:19 | EDDOCDS ---
Physician Documentation [facility] Name: Perla Bhatia Age: 89 yrs Sex: Female : 1925 Arrival Date: 04/01/2016 Time: 09:27 Bed Admit Hold Private MD: Monet Reddy Disposition: 04/01/16 14:34 Hospitalization ordered by Chelsea Hernandez for Inpatient Admission. Preliminary diagnosis is Weakness. - Bed requested for PCU. - Status is Inpatient Admission. ml6 - Condition is Stable. - Problem is new. - Symptoms have worsened. Historical: - Allergies: no known allergies; - Home Meds: 1. amlodipine 5 mg Oral tab 1 tab twice daily (Last dose: 04/01/2016) 2. Humulin N 18units in am 15 units at night Sub-Q (Last dose: 04/01/2016) 3. hydralazine 10 mg Oral tab 1 tab 2 times per day (Last dose: 04/01/2016) 4. hydrochlorothiazide/spironolactone 25/25 2 tab daily (Last dose: 04/01/2016) 5. librium 10mg daily (Last dose: 04/01/2016) 6. tramadol 50 mg Oral tab 1 tab every 6 hours (Last dose: 04/01/2016) 7. Tylenol 325 mg Oral tab 2 tabs every 4-6 hours (Last dose: 04/01/2016) - PMHx: Dementia; Diabetes - IDDM: controlled; Hypertension; Spinal Stenosis; kidney failure; Sleep Apnea w/ CPAP; Cancer, Colon; - PSHx: ; Colon Resection; Cholecystectomy; Tonsillectomy; Hysterectomy; Carpal Tunnel Repair- Left; Appendectomy; Cataract Surgery- Bilateral; - Social history: Smoking status: Patient states was never smoker of tobacco. No barriers to communication noted, The patient speaks fluent Sinhala. - Family history: Not pertinent. - : The pt / caregiver states he / she is not on anticoagulants. Home medication list is obtained from family members. - Exposure Risk Screening:: None identified. Vital Signs: 04/01 09:29 Pulse 94; Resp 18; Temp 96.7(O); Pulse Ox 96% on R/A; Weight 81.65 kg / 180.01 lbs; dem1 Height 5 ft. 2 in. (157.48 cm) (R); 09:34 Pulse 84 MON; Pulse Ox 97% ; pml 09:34 BP 113 / 74 (auto/); pml 09:49 BP 162 / 69; jjr 09:49 Pulse 84 MON; Pulse Ox 97% ; pml 09:49 BP 118 / 74 (auto/); pml 10:04 Pulse 80 MON; Pulse Ox 96% ; pml 10:04 BP 114 / 73 (auto/); pml 10:19 Pulse 82 MON; Pulse Ox 97% ; pml 10:19 BP 127 / 73 (auto/); pml 10:34 Pulse 80 MON; Pulse Ox 97% ; pml 10:34 BP 132 / 75 (auto/); pml 10:49 Pulse 80 MON; Pulse Ox 97% ; pml 10:49 BP 116 / 67 (auto/); pml 11:04 Pulse 94 MON; Pulse Ox 93% ; pml 11:04 BP 116 / 66 (auto/); pml 13:17 Pulse 66 MON; Pulse Ox 96% ; pml 13:17 BP 185 / 70 (auto/); pml 14:34 BP 133 / 60 (auto/); pml 14:35 Pulse 68 MON; Pulse Ox 96% ; pml 14:49 BP 142 / 65 (auto/); pml 14:50 Pulse 66 MON; Pulse Ox 95% ; pml 15:04 BP 171 / 67 (auto/); pml 15:05 Pulse 70 MON; Pulse Ox 96% ; pml 15:19 BP 154 / 113 (auto/); pml 15:20 Pulse 72 MON; Pulse Ox 97% ; pml 15:49 BP 158 / 67 (auto/); pml 15:50 Pulse 68 MON; Pulse Ox 97% ; pml 16:04 BP 194 / 72 (auto/); pml 16:05 Pulse 64 MON; Pulse Ox 95% ; pml 16:21 Pulse 62 MON; Pulse Ox 96% ; pml 16:21 BP 167 / 64 (auto/); pml 09:29 Body Mass Index 32.92 (81.65 kg, 157.48 cm) dem1 MDM: 10:08 Machine Assistant/Pulse Ox/q 15 min VS ordered. fg 10:08 IV Saline Lock ordered. fg 10:08 Rhythm Strip to chart ordered. fg 10:08 Basic Metabolic Profile Ordered. EDMS 10:08 CBC with Diff Ordered. EDMS 10:08 Partial Thromboplastin Time Ordered. EDMS 10:08 Prothrombin Time Profile\E\INR Ordered. EDMS 10:09 Urinalysis Ordered. EDMS 10:09 Urine Culture Ordered. EDMS 10:09 CT Head Without Contrast Ordered. EDMS 10:10 Chest, 1 View Ordered. EDMS 10:10 ECG WITH READING ER PHYS+CARDIAG ordered. EDMS 10:34 Financial registration complete. mm15 10:34 [facility] Payment Agreement was scanned into [employer] and attached to record. mm15 14:30 MRI Screening Tool - Place on chart, inform RN ordered. fg 14:30 -MRA-Brain without contrast Ordered. EDMS 15:15 MRI Screening Tool - Place on chart, inform RN complete. ct3 15:19 Admission / Observation Status ordered. EDMS 16:01 PHYSICAL THERAPY EVAL & TREAT ordered. EDMS 16:01 Duplex,carotid (complete) Ordered. EDMS 16:02 CONSISTENT CARBOHYDRATES ordered. EDMS 17:22 MRI Brain without Contrast Ordered. EDMS 18:41 Fingerstick Blood Sugar Ordered. EDMS 19:31 COMPLETE BLOOD COUNT Ordered. EDMS 19:31 BASIC METABOLIC PROFILE Ordered. EDMS 20:47 Fingerstick Blood Sugar Ordered. EDMS 20:53 CARDIAC RISK PROFILE Ordered. EDMS 04/02 07:41 ELECTROCARDIOGRAM ADULT ordered. EDMS 11:44 Fingerstick Blood Sugar Ordered. EDMS 11:58 Change Status: ordered. EDMS 14:56 T-Sheet-- Draft Copy was scanned into [employer] and attached to record. gb Signatures: Dispatcher [employer] EDVT Ave Yeboah RN VANDANA kpj Martine Braden, Reg Reg gb Ashley Hsu RN Vish Sheldon RN RN ml6 Shannan Zapata, DERMATOLOGIST MANAGING PARTNER DERMATOLOGIST MANAGING PARTNER ct3 Mary Ledesma RN RN pml Nleson Yepez mm15 Cele Braun MD MD fg The chart was reviewed and I authenticate all verbal orders and agree with the evaluation and treatment provided.Corrections: (The following items were deleted from the chart) 04/01 10:34 10:08 Accucheck ordered. fg pml 17:22 14:30 MRI-Brain with contrast+MR ordered. EDMS EDMS 20:53 20:14 CARDIAC RISK PROFILE ordered. EDMS EDMS 04/02 07:49 04/01 20:41 ELECTROCARDIOGRAM ADULT ordered. EDMS EDMS Attachments: 10:34 [facility] Payment Agreement mm15 04/02 14:56 T-Sheet-- Draft Copy gb [facility]
[2016-04-02] MEDS: ROSUVASTATIN 10 MG TAB (CRESTOR) PO SCH (20:24)
[2016-04-03] VITALS (7 sets, daily range): BP systolic 143–167; BP diastolic 63–77; PULSE 85
[2016-04-03 05:37] LABS: MEAN CORPUSCULAR HEMOGLOBIN 31.6 pg (27.0-33.0); MEAN CORPUSCULAR HGB CONC 32.8 g/dl (32.0-36.5); MEAN CORPUSCULAR VOLUME 96.3 fl (80.0-96.0); RED CELL DISTRIBUTION WIDTH 12.8 % (11.5-14.5); WHITE BLOOD COUNT 8.7 K/mm3 (4.0-10.0)
[2016-04-03 05:41] LABS: CREATININE FOR GFR 1.4 MG/DL (0.55-1.02); GLOMERULAR FILTRATION RATE 37.8 (>32); POTASSIUM SERUM 4.5 MEQ/L (3.5-5.1)
[2016-04-03] MEDS: amLODIPine 10 MG TAB PO SCH (07:55)
[2016-04-03] MEDS: CLOPIDOGREL 75 MG TAB PO SCH (07:55)
[2016-04-03] MEDS: traMADol 50 MG TAB PO SCH ×4 (07:56→22:47)
[2016-04-03] MEDS: **hydrALAZINE** 10 MG TAB PO SCH ×2 (07:56→22:48)
[2016-04-03] MEDS: HumaLOG INSULIN (NovoLOG) PER UNIT SC SCH ×4 (07:57→21:00)
--- NOTE | 2016-04-03 10:12 | CR ---
DATE OF CONSULTATION: 04/02/2016 REFERRING PHYSICIAN: Dr. Chelsea Hernandez REASON FOR CONSULTATION: Right arm and facial numbness. HISTORY OF PRESENT ILLNESS: Perla Bhatia is an 89-year-old woman with history of dementia, diabetes, colon and uterine cancer, who presented to [facility] with a 2-day history of right-sided facial, arm, and leg numbness. She came to the emergency department on and had right leg numbness. She had x-rays of her lower back, which showed arthritis, and she was discharged home. On Monday, she developed numbness of her right side of face and arm. There was mild slurring of her speech. She denies any trouble with her vision, except that she has visual loss due to macular degeneration. She denies any new problems with her vision. She denies any weakness of her arms and legs. She uses a walker at her baseline to ambulate. She denies any headache, neck or back pain. She denies any falls or loss of consciousness. PAST MEDICAL HISTORY: Hypertension, chronic kidney disease, insulin-dependent diabetes, history of colon and uterine cancer, dementia, obstructive sleep apnea syndrome on continuous positive airway pressure (CPAP) , history of deep venous thrombosis in past, tonsillectomy, appendectomy, hysterectomy, wrist surgery, cholecystectomy. HOME MEDICATIONS: - Norvasc 5 mg by mouth daily - chlordiazepoxide 10 mg by mouth daily - hydrochlorothiazide/spironolactone 25/25 mg by mouth daily - hydralazine 10 mg by mouth twice a day - insulin NPH 18 units in the morning and 15 units at night - tramadol 50 mg by mouth four times a day as needed SOCIAL HISTORY: She denies smoking, alcohol, or illicit drugs. FAMILY HISTORY: There is no family history of stroke. REVIEW OF SYSTEMS: All systems were reviewed and were found to be noncontributory except as mentioned as mentioned in history of present illness. PHYSICAL EXAMINATION: Blood pressure 138/73, pulse 84, respiratory rate 16, temperature 96.4. Heart: Regular rate and rhythm. Lungs: Clear to auscultation. Abdomen: Soft, nontender, nondistended. No pedal edema. No abnormalities on ears, nose, and throat examination. She has decreased pulses in her feet. Neurological examination: The patient is awake, alert, oriented to place and person mostly. Speech is normal. She has normal comprehension and repetition. Extraocular muscles are intact. No facial weakness. Tongue and uvula are midline. 5/5 strength in all four extremities. Deep tendon reflexes are 1+ in arms and absent in legs. She has decreased cold, vibration sensation in her both legs, right arm and face. Gait could not be tested. There is no dysmetria. DIAGNOSTIC STUDIES: Her MRI scan of brain was reviewed and showed small multiple acute ischemic strokes in left thalamus and left occipital lobe. 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 ASSESSMENT: 1. Left thalamic and occipital lobe strokes. 2. Diabetes, chronic kidney disease, and hypertension. PLAN: 1. Carotid ultrasound. 2. Echocardiogram. 3. Telemetry monitoring to rule out atrial fibrillation. 4. Aspirin 325 mg by mouth daily. 5. Keep systolic blood pressure between 130-180. 6. Follow with our office in 2 weeks after hospital discharge. STEPHANIE
--- NOTE | 2016-04-03 10:31 | IPNPDOC ---
Subjective Date Seen The patient was seen on 04/03/16. Subjective Chief Complaint/HPI The patient is a 89-year-old female admitted with a reason for visit of Rt Sided Weakness. Events since last encounter Continues with Right facial numbness. Objective Physical Examination General Exam: Positive: Alert, Cooperative, No Acute Distress Eye Exam: Positive: Conjunctiva & lids normal, EOMI, PERRLA, Negative: Sclera icteric ENT Exam: Positive: Atraumatic, Mucous membr. moist/pink, Pharynx Normal Neck Exam: Positive: Supple, Negative: thyromegaly Chest Exam: Positive: Clear to auscultation, Normal air movement, Negative: Diminished, Rales, Rhonchi, Wheezing Heart Exam: Positive: Murmurs, Normal S1, Normal S2, Rate Normal, Regular Rhythm, Rubs Abdomen Exam: Positive: Normal bowel sounds, Soft, Tenderness, Negative: Hepatospenomegaly Extremity Exam: Positive: Normal pulses, Negative: Clubbing, Edema Skin Exam: Positive: Nl turgor and temperature Neuro Exam: Positive: Cranial Nerves 3-12 NL, Normal Speech (slightly tangential), Normal Tone, Other (Dysdidochokinesia negative, proprioception intact bilaterally in LE, finger to nose test negative, ), Reflexes 2+ (patellar , achilles ), Sensation Intact, Strength at 5/5 X4 ext Psych Exam: Positive: Mental status NL, Mood NL Assessment /Plan Problems (1) Numbness on right side Status: Acute Problem Text: Pt has 2 day history of RLE numbness and weakness and 1 day hx of R face and RUE numbness with associated slurring of speech without pain. The pt has hx of IDDM and HTN which are both well controlled per her daughter, the primary caregiver. Noncontrast CT of head was performed in the ED that showed no evidence of a acute CVA. On physical exam, pt had no focal neurologic signs and her sensation was intact bilaterally. Pt's muscle strength was also equal bilaterally. No carotid bruits were heard. At this time, we suspect the pt had a transient ischemic attack vs seizures vs complex migraine. Plan to get MRI of brain, EEG, carotid doppler u/s. Will monitor neurologic signs Q4, give IV fluids as needed, encourage ambulation. (2) IDDM (insulin dependent diabetes mellitus) Status: Chronic Problem Text: start pt on sliding scale insulin. (3) Anxiety Status: Chronic Problem Text: Will d/c home chlordiazepoxide for now. (4) HTN (hypertension) Status: Chronic Problem Text: Continue current htn medications (5) CKD (chronic kidney disease) Status: Chronic Problem Text: Monitor chemistries daily AM. (6) History of DVT (deep vein thrombosis) Status: Chronic (7) DVT prophylaxis Status: Acute Problem Text: Enoxaparin, TEDS, Sequentials (8) UTI (urinary tract infection) due to Enterococcus Status: Acute Problem Text: + for e. coli. see Micro Plan/VTE VTE Prophylaxis Ordered?: Yes Plan Diet: Continue Current Activity: Encourage Ambulation Therapy: PT Diagnostics: Repeat Labs in AM Attending physician note: Patient seen and examined. Case reviewed with RPA. VS, I&O, 24H, [place] Vital Signs/I&O Vital Signs Date Time Temp Pulse Resp B/P Pulse Ox O2 Delivery O2 Flow Rate FiO2 04/03/16 08:00 97.9 65 18 152/66 94 Room Air I&O- Last 24 Hours up to 6 AM 04/03/16 06:00 Intake Total 990 ml Output Total 500 ml Balance 490 ml Laboratory Data 24H LABS Laboratory Tests 2 04/02/16 11:33: Bedside Glucose (Misc Panel) 136H 04/02/16 17:26: Bedside Glucose (Misc Panel) 175H 04/02/16 20:18: Bedside Glucose (Misc Panel) 126H 04/03/16 04:39: Anion Gap 8, Blood Urea Nitrogen 34H, Creatinine 1.40H, Sodium Level 139, Potassium Level 4.5, Chloride Level 100, Carbon Dioxide Level 31, Calcium Level 9.0, Glomerular Filtration Rate 37.8 CBC/BMP Laboratory Tests 04/03/16 04:39 Calcium Level 9.0, Red Blood Count 3.99 L, Mean Corpuscular Volume 96.3 H, Mean Corpuscular Hemoglobin 31.6, Mean Corpuscular Hemoglobin Concent 32.8, Red Cell Distribution Width 12.8 Microbiology Microbiology 04/01/16 Urine Culture - Final, Complete Escherichia Coli Elicia OrellanaP Apr 03, 2016 10:31 Kuldeep Barr M.D. Apr 04, 2016 12:54
[2016-04-03] MEDS: LevoFLOXacin 250 MG TABLET PO SCH (16:57)
[2016-04-03] MEDS: ROSUVASTATIN 10 MG TAB (CRESTOR) PO SCH (22:46)
[2016-04-04] VITALS (8 sets, daily range): BP systolic 118–169; BP diastolic 61–70; PULSE 63–67
[2016-04-04 05:25] LABS: MEAN CORPUSCULAR HGB CONC 33.2 g/dl (32.0-36.5); MEAN CORPUSCULAR VOLUME 96.2 fl (80.0-96.0); RED CELL DISTRIBUTION WIDTH 12.8 % (11.5-14.5); WHITE BLOOD COUNT 8.7 K/mm3 (4.0-10.0)
[2016-04-04 05:41] LABS: CALCIUM LEVEL 8.7 MG/DL (8.8-10.2); CREATININE FOR GFR 1.33 MG/DL (0.55-1.02); GLOMERULAR FILTRATION RATE 40.1 (>32); POTASSIUM SERUM 4.2 MEQ/L (3.5-5.1)
[2016-04-04] MEDS: LevoFLOXacin 250 MG TABLET PO SCH (06:53)
--- NOTE | 2016-04-04 08:00 | IPNPDOC ---
Subjective Date Seen The patient was seen on 04/04/16. Subjective Chief Complaint/HPI The patient is a 89-year-old female admitted with a reason for visit of Rt Sided Weakness. Events since last encounter Pt still notes right sided facial numbness. Denies any significant weakness. Denies CP, SOB, Abd pain. Constitutional: Denies: Chills, Fever Pulmonary: Denies: Dyspnea Cardiovascular: Denies: Chest Pain Gastrointestinal: Denies: Abdominal Pain, Nausea, Vomiting Objective Physical Examination General Exam: Positive: Alert, Cooperative, No Acute Distress Eye Exam: Positive: Conjunctiva & lids normal, EOMI, PERRLA, Negative: Sclera icteric ENT Exam: Positive: Atraumatic, Mucous membr. moist/pink, Pharynx Normal Neck Exam: Positive: Supple, Negative: thyromegaly Chest Exam: Positive: Clear to auscultation, Normal air movement, Negative: Diminished, Rales, Rhonchi, Wheezing Heart Exam: Positive: Murmurs, Normal S1, Normal S2, Rate Normal, Regular Rhythm, Rubs Abdomen Exam: Positive: Normal bowel sounds, Soft, Tenderness, Negative: Hepatospenomegaly Extremity Exam: Positive: Normal pulses, Negative: Clubbing, Edema Skin Exam: Positive: Nl turgor and temperature Neuro Exam: Positive: Cranial Nerves 3-12 NL, Normal Speech, Normal Tone, Sensation Intact, Strength at 5/5 X4 ext Psych Exam: Positive: Mental status NL, Mood NL Assessment /Plan Problems (1) Numbness on right side Status: Acute Problem Text: 04/04 - Seen by neuro. On Plavix. ?Aspirin - D/W attending. MRI Brain: "Multiple focal areas of restricted diffusion involving left thalamus at left occipital lobe. This includes a larger subcortical area in the occipital lobe measuring approximately 15 mm. This is compatible with acute lacunar infarcts likely of embolic nature. Generalized age-appropriate parenchymal atrophy. Mild chronic white matter microvascular ischemic changes." Pt has 2 day history of RLE numbness and weakness and 1 day hx of R face and RUE numbness with associated slurring of speech without pain. The pt has hx of IDDM and HTN which are both well controlled per her daughter, the primary caregiver. Noncontrast CT of head was performed in the ED that showed no evidence of a acute CVA. On physical exam, pt had no focal neurologic signs and her sensation was intact bilaterally. Pt's muscle strength was also equal bilaterally. No carotid bruits were heard. At this time, we suspect the pt had a transient ischemic attack vs seizures vs complex migraine. Plan to get MRI of brain, EEG, carotid doppler u/s. Will monitor neurologic signs Q4, give IV fluids as needed, encourage ambulation. (2) IDDM (insulin dependent diabetes mellitus) Status: Chronic Problem Text: start pt on sliding scale insulin. (3) Anxiety Status: Chronic Problem Text: Will d/c home chlordiazepoxide for now. (4) HTN (hypertension) Status: Chronic Problem Text: Continue current htn medications (5) CKD (chronic kidney disease) Status: Chronic Problem Text: Monitor chemistries daily AM. (6) History of DVT (deep vein thrombosis) Status: Chronic (7) DVT prophylaxis Status: Acute Problem Text: Enoxaparin, TEDS, Sequentials (8) UTI (urinary tract infection) due to Enterococcus Status: Acute Problem Text: + for e. coli. see Micro Plan/VTE VTE Prophylaxis Ordered?: Yes Plan Diet: Continue Current Activity: Encourage Ambulation Therapy: PT Diagnostics: Repeat Labs in AM Attending attestation: I saw and evaluated the patient, and I agree with the plan of care as discussed and documented by [place]ico Mireles. Vito Catherine MD VS, I&O, 24H, [facility] Vital Signs/I&O Vital Signs Date Time Temp Pulse Resp B/P Pulse Ox O2 Delivery O2 Flow Rate FiO2 04/04/16 04:19 96.5 58 18 140/67 94 Room Air I&O- Last 24 Hours up to 6 AM 04/04/16 06:00 Intake Total 1020 ml Output Total 950 ml Balance 70 ml Laboratory Data 24H LABS Laboratory Tests 2 04/03/16 11:43: Bedside Glucose (Misc Panel) 140H 04/03/16 16:50: Bedside Glucose (Misc Panel) 206H 04/03/16 21:11: Bedside Glucose (Misc Panel) 155H 04/04/16 04:54: Anion Gap 7L, Blood Urea Nitrogen 35H, Creatinine 1.33H, Sodium Level 139, Potassium Level 4.2, Chloride Level 101, Carbon Dioxide Level 31, Calcium Level 8.7L, Glomerular Filtration Rate 40.1 CBC/BMP Laboratory Tests 04/04/16 04:54 Calcium Level 8.7 L, Red Blood Count 3.69 L, Mean Corpuscular Volume 96.2 H, Mean Corpuscular Hemoglobin 32.0, Mean Corpuscular Hemoglobin Concent 33.2, Red Cell Distribution Width 12.8 Microbiology Microbiology 04/01/16 Urine Culture - Final, Complete Escherichia Coli Navi Mireles RPA-Yuliana Apr 04, 2016 08:00 VITO CATHERINE MD Apr 10, 2016 19:42
[2016-04-04] MEDS: HumaLOG INSULIN (NovoLOG) PER UNIT SC SCH ×4 (08:27→20:39)
[2016-04-04] MEDS: CLOPIDOGREL 75 MG TAB PO SCH (08:27)
[2016-04-04] MEDS: **hydrALAZINE** 10 MG TAB PO SCH ×2 (08:28→20:37)
[2016-04-04] MEDS: traMADol 50 MG TAB PO SCH ×4 (08:28→20:39)
[2016-04-04] MEDS: amLODIPine 10 MG TAB PO SCH (08:29)
--- NOTE | 2016-04-04 18:20 | EDDOCDS ---
Physician Documentation [facility] Name: Perla Bhatia Age: 89 yrs Sex: Female : 1925 Arrival Date: 04/01/2016 Time: 09:27 Bed Admit Hold Private MD: Monet Reddy Disposition: 04/01/16 14:34 Hospitalization ordered by Chelsea Hernandez for Inpatient Admission. Preliminary diagnosis is Weakness. - Bed requested for PCU. - Status is Inpatient Admission. ml6 - Condition is Stable. - Problem is new. - Symptoms have worsened. Historical: - Allergies: no known allergies; - Home Meds: 1. amlodipine 5 mg Oral tab 1 tab twice daily (Last dose: 04/01/2016) 2. Humulin N 18units in am 15 units at night Sub-Q (Last dose: 04/01/2016) 3. hydralazine 10 mg Oral tab 1 tab 2 times per day (Last dose: 04/01/2016) 4. hydrochlorothiazide/spironolactone 25/25 2 tab daily (Last dose: 04/01/2016) 5. librium 10mg daily (Last dose: 04/01/2016) 6. tramadol 50 mg Oral tab 1 tab every 6 hours (Last dose: 04/01/2016) 7. Tylenol 325 mg Oral tab 2 tabs every 4-6 hours (Last dose: 04/01/2016) - PMHx: Dementia; Diabetes - IDDM: controlled; Hypertension; Spinal Stenosis; kidney failure; Sleep Apnea w/ CPAP; Cancer, Colon; - PSHx: ; Colon Resection; Cholecystectomy; Tonsillectomy; Hysterectomy; Carpal Tunnel Repair- Left; Appendectomy; Cataract Surgery- Bilateral; - Social history: Smoking status: Patient states was never smoker of tobacco. No barriers to communication noted, The patient speaks fluent French. - Family history: Not pertinent. - : The pt / caregiver states he / she is not on anticoagulants. Home medication list is obtained from family members. - Exposure Risk Screening:: None identified. Vital Signs: 04/01 09:29 Pulse 94; Resp 18; Temp 96.7(O); Pulse Ox 96% on R/A; Weight 81.65 kg / 180.01 lbs; dem1 Height 5 ft. 2 in. (157.48 cm) (R); 09:34 Pulse 84 MON; Pulse Ox 97% ; pml 09:34 BP 113 / 74 (auto/); pml 09:49 BP 162 / 69; jjr 09:49 Pulse 84 MON; Pulse Ox 97% ; pml 09:49 BP 118 / 74 (auto/); pml 10:04 Pulse 80 MON; Pulse Ox 96% ; pml 10:04 BP 114 / 73 (auto/); pml 10:19 Pulse 82 MON; Pulse Ox 97% ; pml 10:19 BP 127 / 73 (auto/); pml 10:34 Pulse 80 MON; Pulse Ox 97% ; pml 10:34 BP 132 / 75 (auto/); pml 10:49 Pulse 80 MON; Pulse Ox 97% ; pml 10:49 BP 116 / 67 (auto/); pml 11:04 Pulse 94 MON; Pulse Ox 93% ; pml 11:04 BP 116 / 66 (auto/); pml 13:17 Pulse 66 MON; Pulse Ox 96% ; pml 13:17 BP 185 / 70 (auto/); pml 14:34 BP 133 / 60 (auto/); pml 14:35 Pulse 68 MON; Pulse Ox 96% ; pml 14:49 BP 142 / 65 (auto/); pml 14:50 Pulse 66 MON; Pulse Ox 95% ; pml 15:04 BP 171 / 67 (auto/); pml 15:05 Pulse 70 MON; Pulse Ox 96% ; pml 15:19 BP 154 / 113 (auto/); pml 15:20 Pulse 72 MON; Pulse Ox 97% ; pml 15:49 BP 158 / 67 (auto/); pml 15:50 Pulse 68 MON; Pulse Ox 97% ; pml 16:04 BP 194 / 72 (auto/); pml 16:05 Pulse 64 MON; Pulse Ox 95% ; pml 16:21 Pulse 62 MON; Pulse Ox 96% ; pml 16:21 BP 167 / 64 (auto/); pml 09:29 Body Mass Index 32.92 (81.65 kg, 157.48 cm) dem1 MDM: 10:08 Vehicle Service Agent/Pulse Ox/q 15 min VS ordered. fg 10:08 IV Saline Lock ordered. fg 10:08 Rhythm Strip to chart ordered. fg 10:08 Basic Metabolic Profile Ordered. EDMS 10:08 CBC with Diff Ordered. EDMS 10:08 Partial Thromboplastin Time Ordered. EDMS 10:08 Prothrombin Time Profile\E\INR Ordered. EDMS 10:09 Urinalysis Ordered. EDMS 10:09 Urine Culture Ordered. EDMS 10:09 CT Head Without Contrast Ordered. EDMS 10:10 Chest, 1 View Ordered. EDMS 10:10 ECG WITH READING ER PHYS+CARDIAG ordered. EDMS 10:34 Financial registration complete. mm15 10:34 [facility] Payment Agreement was scanned into [employer] and attached to record. mm15 14:30 MRI Screening Tool - Place on chart, inform RN ordered. fg 14:30 -MRA-Brain without contrast Ordered. EDMS 15:15 MRI Screening Tool - Place on chart, inform RN complete. ct3 15:19 Admission / Observation Status ordered. EDMS 16:01 PHYSICAL THERAPY EVAL & TREAT ordered. EDMS 16:01 Duplex,carotid (complete) Ordered. EDMS 16:02 CONSISTENT CARBOHYDRATES ordered. EDMS 17:22 MRI Brain without Contrast Ordered. EDMS 18:41 Fingerstick Blood Sugar Ordered. EDMS 19:31 COMPLETE BLOOD COUNT Ordered. EDMS 19:31 BASIC METABOLIC PROFILE Ordered. EDMS 20:47 Fingerstick Blood Sugar Ordered. EDMS 20:53 CARDIAC RISK PROFILE Ordered. EDMS 02 07:41 ELECTROCARDIOGRAM ADULT ordered. EDMS 11:44 Fingerstick Blood Sugar Ordered. EDMS 11:58 Change Status: ordered. EDMS 14:56 T-Sheet-- Draft Copy was scanned into [employer] and attached to record. gb 04/04 11:29 ECG/EKG was scanned into [employer] and attached to record. gb Signatures: Dispatcher [employer] EDAL Ave Yeboah RN Martine Wright, Reg Reg Ashley Hsu RN Vish Sheldon RN RN ml6 Shannan Zapata, TEACHER TUTOR TEACHER TUTOR ct3 Mary Ledesma,RN Nelson Bowens mm15 Cele Braun MD MD fg The chart was reviewed and I authenticate all verbal orders and agree with the evaluation and treatment provided.Corrections: (The following items were deleted from the chart) 04/01 10:34 10:08 Accucheck ordered. fg pml 17:22 14:30 MRI-Brain with contrast+MR ordered. EDMS EDMS 20:53 20:14 CARDIAC RISK PROFILE ordered. EDMS EDMS 02/18 07:49 04/01 20:41 ELECTROCARDIOGRAM ADULT ordered. EDMS EDMS Attachments: 10:34 [facility] Payment Agreement mm15 04/02 14:56 T-Sheet-- Draft Copy gb 04/04 11:29 ECG/EKG Chart Complete MTDD
--- NOTE | 2016-04-04 18:20 | EDDOCDS ---
Physician Documentation [facility] Name: Perla Bhatia Age: 89 yrs Sex: Female : 1925 Arrival Date: 04/01/2016 Time: 09:27 Bed Admit Hold Private MD: Monet Reddy Disposition: 04/01/16 14:34 Hospitalization ordered by Chelsea Hernandez for Inpatient Admission. Preliminary diagnosis is Weakness. - Bed requested for PCU. - Status is Inpatient Admission. ml6 - Condition is Stable. - Problem is new. - Symptoms have worsened. Historical: - Allergies: no known allergies; - Home Meds: 1. amlodipine 5 mg Oral tab 1 tab twice daily (Last dose: 04/01/2016) 2. Humulin N 18units in am 15 units at night Sub-Q (Last dose: 04/01/2016) 3. hydralazine 10 mg Oral tab 1 tab 2 times per day (Last dose: 04/01/2016) 4. hydrochlorothiazide/spironolactone 25/25 2 tab daily (Last dose: 04/01/2016) 5. librium 10mg daily (Last dose: 04/01/2016) 6. tramadol 50 mg Oral tab 1 tab every 6 hours (Last dose: 04/01/2016) 7. Tylenol 325 mg Oral tab 2 tabs every 4-6 hours (Last dose: 04/01/2016) - PMHx: Dementia; Diabetes - IDDM: controlled; Hypertension; Spinal Stenosis; kidney failure; Sleep Apnea w/ CPAP; Cancer, Colon; - PSHx: ; Colon Resection; Cholecystectomy; Tonsillectomy; Hysterectomy; Carpal Tunnel Repair- Left; Appendectomy; Cataract Surgery- Bilateral; - Social history: Smoking status: Patient states was never smoker of tobacco. No barriers to communication noted, The patient speaks fluent Urdu. - Family history: Not pertinent. - : The pt / caregiver states he / she is not on anticoagulants. Home medication list is obtained from family members. - Exposure Risk Screening:: None identified. Vital Signs: 04/01 09:29 Pulse 94; Resp 18; Temp 96.7(O); Pulse Ox 96% on R/A; Weight 81.65 kg / 180.01 lbs; dem1 Height 5 ft. 2 in. (157.48 cm) (R); 09:34 Pulse 84 MON; Pulse Ox 97% ; pml 09:34 BP 113 / 74 (auto/); pml 09:49 BP 162 / 69; jjr 09:49 Pulse 84 MON; Pulse Ox 97% ; pml 09:49 BP 118 / 74 (auto/); pml 10:04 Pulse 80 MON; Pulse Ox 96% ; pml 10:04 BP 114 / 73 (auto/); pml 10:19 Pulse 82 MON; Pulse Ox 97% ; pml 10:19 BP 127 / 73 (auto/); pml 10:34 Pulse 80 MON; Pulse Ox 97% ; pml 10:34 BP 132 / 75 (auto/); pml 10:49 Pulse 80 MON; Pulse Ox 97% ; pml 10:49 BP 116 / 67 (auto/); pml 11:04 Pulse 94 MON; Pulse Ox 93% ; pml 11:04 BP 116 / 66 (auto/); pml 13:17 Pulse 66 MON; Pulse Ox 96% ; pml 13:17 BP 185 / 70 (auto/); pml 14:34 BP 133 / 60 (auto/); pml 14:35 Pulse 68 MON; Pulse Ox 96% ; pml 14:49 BP 142 / 65 (auto/); pml 14:50 Pulse 66 MON; Pulse Ox 95% ; pml 15:04 BP 171 / 67 (auto/); pml 15:05 Pulse 70 MON; Pulse Ox 96% ; pml 15:19 BP 154 / 113 (auto/); pml 15:20 Pulse 72 MON; Pulse Ox 97% ; pml 15:49 BP 158 / 67 (auto/); pml 15:50 Pulse 68 MON; Pulse Ox 97% ; pml 16:04 BP 194 / 72 (auto/); pml 16:05 Pulse 64 MON; Pulse Ox 95% ; pml 16:21 Pulse 62 MON; Pulse Ox 96% ; pml 16:21 BP 167 / 64 (auto/); pml 09:29 Body Mass Index 32.92 (81.65 kg, 157.48 cm) dem1 MDM: 10:08 Clinical Program Consultant/Pulse Ox/q 15 min VS ordered. fg 10:08 IV Saline Lock ordered. fg 10:08 Rhythm Strip to chart ordered. fg 10:08 Basic Metabolic Profile Ordered. EDMS 10:08 CBC with Diff Ordered. EDMS 10:08 Partial Thromboplastin Time Ordered. EDMS 10:08 Prothrombin Time Profile\E\INR Ordered. EDMS 10:09 Urinalysis Ordered. EDMS 10:09 Urine Culture Ordered. EDMS 10:09 CT Head Without Contrast Ordered. EDMS 10:10 Chest, 1 View Ordered. EDMS 10:10 ECG WITH READING ER PHYS+CARDIAG ordered. EDMS 10:34 Financial registration complete. mm15 10:34 [facility] Payment Agreement was scanned into [employer] and attached to record. mm15 14:30 MRI Screening Tool - Place on chart, inform RN ordered. fg 14:30 -MRA-Brain without contrast Ordered. EDMS 15:15 MRI Screening Tool - Place on chart, inform RN complete. ct3 15:19 Admission / Observation Status ordered. EDMS 16:01 PHYSICAL THERAPY EVAL & TREAT ordered. EDMS 16:01 Duplex,carotid (complete) Ordered. EDMS 16:02 CONSISTENT CARBOHYDRATES ordered. EDMS 17:22 MRI Brain without Contrast Ordered. EDMS 18:41 Fingerstick Blood Sugar Ordered. EDMS 19:31 COMPLETE BLOOD COUNT Ordered. EDMS 19:31 BASIC METABOLIC PROFILE Ordered. EDMS 20:47 Fingerstick Blood Sugar Ordered. EDMS 20:53 CARDIAC RISK PROFILE Ordered. EDMS 02 07:41 ELECTROCARDIOGRAM ADULT ordered. EDMS 11:44 Fingerstick Blood Sugar Ordered. EDMS 11:58 Change Status: ordered. EDMS 14:56 T-Sheet-- Draft Copy was scanned into [employer] and attached to record. gb 04/04 11:29 ECG/EKG was scanned into [employer] and attached to record. gb Signatures: Dispatcher [employer] EDND Ave Yeboah RN Martine Wright, Reg Reg Ashley Hsu RN Vish Sheldon RN RN ml6 Shannan Zapata, SUPPLY CLERK SUPPLY CLERK ct3 Mary Ledesma,RN Nelson Bowens mm15 Cele Braun MD MD fg The chart was reviewed and I authenticate all verbal orders and agree with the evaluation and treatment provided.Corrections: (The following items were deleted from the chart) 04/01 10:34 10:08 Accucheck ordered. fg pml 17:22 14:30 MRI-Brain with contrast+MR ordered. EDMS EDMS 20:53 20:14 CARDIAC RISK PROFILE ordered. EDMS EDMS 02/18 07:49 04/01 20:41 ELECTROCARDIOGRAM ADULT ordered. EDMS EDMS Attachments: 10:34 [facility] Payment Agreement mm15 04/02 14:56 T-Sheet-- Draft Copy gb 04/04 11:29 ECG/EKG Chart Complete MTDD
--- NOTE | 2016-04-04 18:20 | EDDOCDS ---
Nurse's Notes Name: Perla Anton Age: 89 yrs Sex: Female : 1925 Arrival Date: 04/01/2016 Time: 09:27 Bed Admit Hold Private MD: Monet Reddy Diagnosis: Weakness Presentation: 04/01 09:43 Presenting complaint: daughter states evaluated yesterday for right leg numbness jjr beginning this past Monday, pt woke with right hand and right side facial numbness this morning. Adult Sepsis Screening: The patient does not have new or worsening altered mentation. Patient's respiratory rate is less than 22. Systolic blood pressure is greater than 100. Patient has a qSOFA score of 0- Negative Sepsis Screen. Suicide/Homicide risk assessment- the patient denies having any suicidal and/or homicidal ideations and does not present with any other emotional, behavioral or mental health complaints. Status: Patient is not a claims service adjustor or dependent. Transition of care: patient was not received from another setting of care. 09:43 Acuity: KOFI Level 3 jjr 09:43 Method Of Arrival: Walkin/Carried/Asstd jjr Triage Assessment: 09:47 General: Appears in no apparent distress. Pain: Denies pain. Neurological: Reports jjr numbness. 11:43 Neurological: On Site Nurse are equal bilaterally checked at time of last note. jjr Historical: - Allergies: no known allergies; - Home Meds: 1. amlodipine 5 mg Oral tab 1 tab twice daily (Last dose: 04/01/2016) 2. Humulin N 18units in am 15 units at night Sub-Q (Last dose: 04/01/2016) 3. hydralazine 10 mg Oral tab 1 tab 2 times per day (Last dose: 04/01/2016) 4. hydrochlorothiazide/spironolactone 25/25 2 tab daily (Last dose: 04/01/2016) 5. librium 10mg daily (Last dose: 04/01/2016) 6. tramadol 50 mg Oral tab 1 tab every 6 hours (Last dose: 04/01/2016) 7. Tylenol 325 mg Oral tab 2 tabs every 4-6 hours (Last dose: 04/01/2016) - PMHx: Dementia; Diabetes - IDDM: controlled; Hypertension; Spinal Stenosis; kidney failure; Sleep Apnea w/ CPAP; Cancer, Colon; - PSHx: ; Colon Resection; Cholecystectomy; Tonsillectomy; Hysterectomy; Carpal Tunnel Repair- Left; Appendectomy; Cataract Surgery- Bilateral; - Social history: Smoking status: Patient states was never smoker of tobacco. No barriers to communication noted, The patient speaks fluent [place] Island[place]. - Family history: Not pertinent. - : The pt / caregiver states he / she is not on anticoagulants. Home medication list is obtained from family members. - Exposure Risk Screening:: None identified. Screenin:01 Screening information is obtained from the patient. Fall risk: No risks identified. pml Assistance ADL's: requires no assistance with activities of daily living. Abuse/DV Screen: The patient / caregiver reports he/she is: not in a situation that causes fear, pain or injury. Nutritional screening: No deficits noted. Advance Directives: Currently, there is no health care proxy. home support is adequate. Assessment: 10:01 General: Appears in no apparent distress, comfortable, Behavior is appropriate for age, pml cooperative. Pain: Denies pain. Neurological: Level of Consciousness is awake, alert, Oriented to person, place, time, On Site Nurse are equal bilaterally Facial symmetry appears normal, Pupils are PERRLA, Numbness in right cheek, right jaw, right arm and right leg however able to discern touch at all sites of reported numbness. . Cardiovascular: Capillary refill < 3 seconds Rhythm is sinus rhythm No ectopy. Respiratory: Airway is patent Respiratory effort is even, unlabored. GI: Abdomen is non- distended obese. Derm: Skin is pink, warm & dry. Musculoskeletal: Circulation, motion, and sensation intact Capillary refill < 3 seconds Range of motion intact in all extremities. 11:18 General: resting comfortably on stretcher, reports no change in symptoms. resps easy pml and unlabored, skin p/w/d. 12:07 General: Appears in no apparent distress, Behavior is appropriate for age, cooperative. pml Pain: Denies pain. Neurological: Level of Consciousness is awake, alert, Oriented to person, place, time. Cardiovascular: Capillary refill < 3 seconds Rhythm is sinus rhythm No ectopy. Derm: Skin is pink, warm & dry. 13:47 General: resting on stretcher, resps easy and unlabored, family at bedside. awaiting pml plan from specialist. . 15:00 General: Appears in no apparent distress, comfortable, Behavior is appropriate for age, pml cooperative. Pain: Denies pain. Neurological: Level of Consciousness is awake, alert, Oriented to person, place, time, Numbness in right leg and right arm and right jaw and right cheek. Cardiovascular: Capillary refill < 3 seconds Rhythm is sinus rhythm No ectopy. Derm: Skin is pink, warm & dry. 16:32 General: resting on stretcher, voices no complaints. resps easy and unlabored, skin pml p/w/d. sinus rhythm on monitor/. 17:45 General: Pt to MRI. pml 18:12 General: report to emery RN. pml Vital Signs: 09:29 Pulse 94; Resp 18; Temp 96.7(O); Pulse Ox 96% on R/A; Weight 81.65 kg; Height 5 ft. 2 dem1 in. (157.48 cm) (R); 09:34 Pulse 84 MON; Pulse Ox 97% ; pml 09:34 BP 113 / 74 (auto/); pml 09:49 BP 162 / 69; jjr 09:49 Pulse 84 MON; Pulse Ox 97% ; pml 09:49 BP 118 / 74 (auto/); pml 10:04 Pulse 80 MON; Pulse Ox 96% ; pml 10:04 BP 114 / 73 (auto/); pml 10:19 Pulse 82 MON; Pulse Ox 97% ; pml 10:19 BP 127 / 73 (auto/); pml 10:34 Pulse 80 MON; Pulse Ox 97% ; pml 10:34 BP 132 / 75 (auto/); pml 10:49 Pulse 80 MON; Pulse Ox 97% ; pml 10:49 BP 116 / 67 (auto/); pml 11:04 Pulse 94 MON; Pulse Ox 93% ; pml 11:04 BP 116 / 66 (auto/); pml 13:17 Pulse 66 MON; Pulse Ox 96% ; pml 13:17 BP 185 / 70 (auto/); pml 14:34 BP 133 / 60 (auto/); pml 14:35 Pulse 68 MON; Pulse Ox 96% ; pml 14:49 BP 142 / 65 (auto/); pml 14:50 Pulse 66 MON; Pulse Ox 95% ; pml 15:04 BP 171 / 67 (auto/); pml 15:05 Pulse 70 MON; Pulse Ox 96% ; pml 15:19 BP 154 / 113 (auto/); pml 15:20 Pulse 72 MON; Pulse Ox 97% ; pml 15:49 BP 158 / 67 (auto/); pml 15:50 Pulse 68 MON; Pulse Ox 97% ; pml 16:04 BP 194 / 72 (auto/); pml 16:05 Pulse 64 MON; Pulse Ox 95% ; pml 16:21 Pulse 62 MON; Pulse Ox 96% ; pml 16:21 BP 167 / 64 (auto/); pml 09:29 Body Mass Index 32.92 (81.65 kg, 157.48 cm) [facility] Vitals: 09:29 Log In Time: April 01, 2016 at 09:27. dem1 09:29 RN notified that patient meets Red Flag criteria. dem1 ED Course: 09:28 Patient visited by Thelma Meehan. dem1 09:28 Patient moved to Waiting dem1 09:29 Monet Reddy MD is Private Physician. dem1 09:33 Patient visited by Thelma Meehan. dem1 09:34 Ludy Matthews RN is Primary Nurse. dem1 09:34 Mary Ledesma,RN is Primary Nurse. dem1 09:34 Patient moved to 12 dem1 09:36 Cele Braun MD is Attending Physician. fg 09:36 Patient visited by Cele Braun MD. fg 09:44 Triage Initiated jjr 10:01 The patient / caregiver is instructed regarding the plan of care and ED course. Patient pml has correct armband on for positive identification. Placed in gown. Bed in low position. Call light in reach. Side rails up X2. compliance monitor on. Pulse ox on. NIBP on. 10:03 Patient visited by Mary Ledesma,VANDANA. pml 10:17 EKG done. (by ED staff). Reviewed by Cele Braun MD. ct3 10:18 Patient visited by Shannan Zapata PCA. ct3 10:25 Inserted saline lock: 20 gauge in left antecubital area and blood collected. The dy patient tolerated the procedure well. 10:25 Labs drawn. (by ED staff). Sent per order to lab. dy 10:28 Basic Metabolic Profile Sent. dy 10:29 CBC with Diff Sent. dy 10:29 Partial Thromboplastin Time Sent. dy 10:29 Prothrombin Time Profile\E\INR Sent. dy 10:34 [facility] [place] [place] Payment Agreement was scanned into GetMy[employer] and attached to record. mm15 11:02 Patient visited by Shannan Zapata PCA. ct3 11:13 Chest, 1 View Returned. EDMS 11:19 Patient visited by Mary Ledesma,VANDANA. pml 11:59 CT Head Without Contrast Returned. EDMS 12:02 Assisted with bedpan. ct3 12:02 Urine Culture Sent. ct3 12:02 Urinalysis Sent. ct3 12:03 Patient visited by Shannan Zapata PCA. ct3 12:08 Patient visited by Mary Ledesma,VANDANA. pml 12:43 Patient visited by Shannan Zapata PCA. ct3 13:47 Patient visited by Mary Ledesma,VANDANA. pml 14:03 Assisted with bedpan. dem1 14:04 Patient visited by Thelma Meehan. dem1 14:32 Chelsea Hernandez is Hospitalizing Provider. fg 15:24 Patient visited by Mary Ledemsa RN. pml 16:34 Patient visited by Mary Ledesma RN. pml 17:32 Patient moved to MRI dem1 18:12 Patient moved to 19 pml 18:18 Patient moved to Admit Hold dy 19:08 Duplex,carotid (complete) Returned. EDMS 20:03 ELECTROCARDIOGRAM ADULT Returned. EDMS 20:09 MRI Brain without Contrast Returned. EDMS 20:09 -MRA-Brain without contrast Returned. EDMS 20:56 EKG done. (by ED staff). Reviewed by Chelsea Hernandez. kb5 22:38 Primary Nurse role handed off by Ludy Matthews RN kb5 04/02 03:22 Primary Nurse role handed off by Mary Ledesma,VANDANA cz 08:41 ELECTROCARDIOGRAM ADULT Returned. EDMS 14:56 T-Sheet-- Draft Copy was scanned into Get[employer] and attached to record. gb 04/04 11:29 ECG/EKG was scanned into [employer] and attached to record. gb Order Results: Lab Order: Basic Metabolic Profile; SPEC'M 04/01/16 10:25 Test: GLUCOSE, FASTING; Value: 288; Range: 83-110; Abnormal: Above high normal; Units: MG/DL; Status: F Test: BLOOD UREA NITROGEN; Value: 30; Range: 7-18; Abnormal: Above high normal; Units: MG/DL; Status: F Test: CREATININE FOR GFR; Value: 1.44; Range: 0.55-1.02; Abnormal: Above high normal; Units: MG/DL; Status: F Test: GLOMERULAR FILTRATION RATE; Value: 36.6; Range: >32; Status: F Test: SODIUM LEVEL; Value: 139; Range: 136-145; Units: MEQ/L; Status: F Test: POTASSIUM SERUM; Value: 4.3; Range: 3.5-5.1; Units: MEQ/L; Status: F Test: CHLORIDE LEVEL; Value: 102; Range: 98-107; Units: MEQ/L; Status: F Test: CARBON DIOXIDE LEVEL; Value: 30; Range: 21-32; Units: MEQ/L; Status: F Test: ANION GAP; Value: 7; Range: 8-16; Abnormal: Below low normal; Units: MEQ/L; Status: F Test: CALCIUM LEVEL; Value: 8.5; Range: 8.8-10.2; Abnormal: Below low normal; Units: MG/DL; Status: F Test Note: ; Units are mL/min/1.73 m2 Chronic Kidney Disease Staging per NKF: Stage I & II GFR >=60 Normal to Mildly Decreased Stage III GFR 30-59 Moderately Decreased Stage IV GFR 15-29 Severely Decreased Stage V GFR <15 Very Little GFR Left ESRD GFR <15 on SAWMILL MANAGER Lab Order: CBC with Diff; SPEC'M 04/01/16 10:25 Test: WHITE BLOOD COUNT; Value: 9.4; Range: 4.0-10.0; Units: K/mm3; Status: F Test: RED BLOOD COUNT; Value: 3.99; Range: 4.00-5.40; Abnormal: Below low normal; Units: M/mm3; Status: F Test: HEMOGLOBIN; Value: 12.4; Range: 12.0-16.0; Units: g/dl; Status: F Test: HEMATOCRIT; Value: 38.5; Range: 36.0-47.0; Units: %; Status: F Test: MEAN CORPUSCULAR VOLUME; Value: 96.5; Range: 80.0-96.0; Abnormal: Above high normal; Units: fl; Status: F Test: MEAN CORPUSCULAR HEMOGLOBIN; Value: 31.1; Range: 27.0-33.0; Units: pg; Status: F Test: MEAN CORPUSCULAR HGB CONC; Value: 32.3; Range: 32.0-36.5; Units: g/dl; Status: F Test: RED CELL DISTRIBUTION WIDTH; Value: 12.8; Range: 11.5-14.5; Units: %; Status: F Test: PLATELET COUNT, AUTOMATED; Value: 341; Range: 150-450; Units: k/mm3; Status: F Test: NEUTROPHILS %; Value: 80.2; Range: 36.0-66.0; Abnormal: Above high normal; Units: %; Status: F Test: LYMPH %; Value: 11.6; Range: 24.0-44.0; Abnormal: Below low normal; Units: %; Status: F Test: MONO %; Value: 4.8; Range: 0.0-5.0; Units: %; Status: F Test: EOS %; Value: 0.7; Range: 0.0-3.0; Units: %; Status: F Test: BASO %; Value: 0.5; Range: 0.0-1.0; Units: %; Status: F Test: LARGE UNSTAINED CELL %; Value: 2.3; Range: 0.0-4.0; Units: %; Status: F Test: NEUTROPHILS #; Value: 7.6; Range: 1.8-7.7; Units: K/mm3; Status: F Test: LYMPH #; Value: 1.1; Range: 1.5-4.5; Abnormal: Below low normal; Units: K/mm3; Status: F Test: MONO #; Value: 0.5; Range: 0.0-0.8; Units: K/mm3; Status: F Test: EOS #; Value: 0.1; Range: 0.0-0.50; Units: K/mm3; Status: F Test: BASO #; Value: 0.0; Range: 0.0-0.2; Units: K/mm3; Status: F Test: LARGE UNSTAINED CELL #; Value: 0.2; Range: 0.0-0.4; Units: K/mm3; Status: F Lab Order: Partial Thromboplastin Time; SPEC'M 04/01/16 10:25 Test: PARTIAL THROMBOPLASTIN TIME; Value: 37.9; Range: 26.6-37.1; Abnormal: Above high normal; Units: SECONDS; Status: F Lab Order: Prothrombin Time Profile\E\INR; [facility] 04/01/16 10:25 Test: PROTHROMBIN TIME; Value: 13.2; Range: 12.3-14.5; Units: SECONDS; Status: F Test: INR; Value: 0.99; Status: F Test Note: ; THERAPUTIC HUMAN INR VALUES INDICATIONS NORMAL RANGES PROPHYLAXIS/TREATMENT OF: VENOUS THROMBOSIS 2.0-3.0 PULMONARY EMBOLISM 2.0-3.0 PREVENTION OF SYSTEMIC EMBOLISM FROM: TISSUE HEART VALVES 2.0-3.0 ACUTE MYOCARDIAL INFARCTION 2.0-3.0 VALVULAR HEART DISEASE 2.0-3.0 ATRIAL FIBRILLATION 2.0-3.0 MECHANICAL VALVES(HIGH RISK) 2.5-3.5 RECURRENT MYOCARDIAL INFARCTION 2.5-3.5 Lab Order: Urinalysis; [facility] 04/01/16 12:01 Test: APPEARANCE, URINE; Value: CLEAR; Range: CLEAR; Status: F Test: COLOR, URINE; Value: YELLOW; Range: YELLOW; Status: F Test: PH,URINE; Value: 6.0; Range: 5.0-9.0; Units: UNITS; Status: F Test: SPECIFIC GRAVITY URINE AUTO; Value: 1.019; Range: 1.002-1.035; Status: F Test: PROTEIN, URINE AUTO; Value: NEGATIVE; Range: NEGATIVE; Units: mg/dL; Status: F Test: GLUCOSE, URINE (UA) AUTO; Value: 1+; Range: NEGATIVE; Abnormal: Above high normal; Units: mg/dL; Status: F Test: KETONE, URINE AUTO; Value: NEGATIVE; Range: NEGATIVE; Units: mg/dL; Status: F Test: UROBILINOGEN, URINE AUTO; Value: 0.2; Range: 0.0-2.0; Units: mg/dL; Status: F Test: BILIRUBIN, URINE AUTO; Value: NEGATIVE; Range: NEGATIVE; Status: F Test: NITRITE, URINE AUTO; Value: NEGATIVE; Range: NEGATIVE; Status: F Test: LEUKOCYTE ESTERASE, URINE AUTO; Value: 1+; Range: NEGATIVE; Abnormal: Above high normal; Status: F Test: BLOOD, URINE BLOOD; Value: NEGATIVE; Range: NEGATIVE; Status: F Test: WBC, URINE AUTO; Value: 9; Range: 0-3; Abnormal: Above high normal; Units: /HPF; Status: F Test: RBC, URINE AUTO; Value: 5; Range: 0-3; Abnormal: Above high normal; Units: /HPF; Status: F Test: BACTERIA, URINE AUTO; Value: 1+; Range: NEGATIVE; Abnormal: Above high normal; Status: F Test: SQUAMOUS EPITHELIAL CELL UR AU; Value: 0; Range: 0-6; Units: /HPF; Status: F Test: MUCUS, URINE; Value: SMALL; Range: NEGATIVE; Status: F Test: HYALINE CAST, URINE AUTO; Value: 1; Range: 0-1; Units: /LPF; Status: F Lab Order: Fingerstick Blood Sugar; [facility] 04/01/16 18:32 Test: BEDSIDE GLUCOSE; Value: 102; Range: 83-110; Units: MG/DL; Status: F Lab Order: COMPLETE BLOOD COUNT; [facility] 04/02/16 06:16 Test: WHITE BLOOD COUNT; Value: 8.4; Range: 4.0-10.0; Units: K/mm3; Status: F Test: RED BLOOD COUNT; Value: 4.02; Range: 4.00-5.40; Units: M/mm3; Status: F Test: HEMOGLOBIN; Value: 12.8; Range: 12.0-16.0; Units: g/dl; Status: F Test: HEMATOCRIT; Value: 38.4; Range: 36.0-47.0; Units: %; Status: F Test: MEAN CORPUSCULAR VOLUME; Value: 95.7; Range: 80.0-96.0; Units: fl; Status: F Test: MEAN CORPUSCULAR HEMOGLOBIN; Value: 31.8; Range: 27.0-33.0; Units: pg; Status: F Test: MEAN CORPUSCULAR HGB CONC; Value: 33.3; Range: 32.0-36.5; Units: g/dl; Status: F Test: RED CELL DISTRIBUTION WIDTH; Value: 12.9; Range: 11.5-14.5; Units: %; Status: F Test: PLATELET COUNT, AUTOMATED; Value: 337; Range: 150-450; Units: k/mm3; Status: F Lab Order: BASIC METABOLIC PROFILE; [facility] 04/02/16 06:16 Test: GLUCOSE, FASTING; Value: 123; Range: 83-110; Abnormal: Above high normal; Units: MG/DL; Status: F Test: BLOOD UREA NITROGEN; Value: 25; Range: 7-18; Abnormal: Above high normal; Units: MG/DL; Status: F Test: CREATININE FOR GFR; Value: 1.21; Range: 0.55-1.02; Abnormal: Above high normal; Units: MG/DL; Status: F Test: GLOMERULAR FILTRATION RATE; Value: 44.7; Range: >32; Status: F Test: SODIUM LEVEL; Value: 139; Range: 136-145; Units: MEQ/L; Status: F Test: POTASSIUM SERUM; Value: 4.0; Range: 3.5-5.1; Units: MEQ/L; Status: F Test: CHLORIDE LEVEL; Value: 101; Range: 98-107; Units: MEQ/L; Status: F Test: CARBON DIOXIDE LEVEL; Value: 30; Range: 21-32; Units: MEQ/L; Status: F Test: ANION GAP; Value: 8; Range: 8-16; Units: MEQ/L; Status: F Test: CALCIUM LEVEL; Value: 8.9; Range: 8.8-10.2; Units: MG/DL; Status: F Test Note: ; Units are mL/min/1.73 m2 Chronic Kidney Disease Staging per NKF: Stage I & II GFR >=60 Normal to Mildly Decreased Stage III GFR 30-59 Moderately Decreased Stage IV GFR 15-29 Severely Decreased Stage V GFR <15 Very Little GFR Left ESRD GFR <15 on SAWMILL MANAGER Lab Order: Fingerstick Blood Sugar; [facility]' 04/01/16 20:33 Test: BEDSIDE GLUCOSE; Value: 129; Range: 83-110; Abnormal: Above high normal; Units: MG/DL; Status: F Lab Order: CARDIAC RISK PROFILE; [facility] 04/01/16 10:25 Test: TRIGLYCERIDES LEVEL; Value: 131; Range: <150; Units: MG/DL; Status: F Test: CHOLESTEROL LEVEL; Value: 149; Range: <200; Units: MG/DL; Status: F Test: HDL CHOLESTEROL; Value: 62; Range: >40; Units: MG/DL; Status: F Test: LDL CHOLESTEROL; Value: 60.8; Range: <100; Units: MG/DL; Status: F Test: NON-HDL-C; Value: 87; Units: MG/DL; Status: F Test: CHOLESTEROL RISK RATIO; Value: 2.403; Range: <5; Status: F Lab Order: Fingerstick Blood Sugar; [facility] 04/02/16 11:33 Test: BEDSIDE GLUCOSE; Value: 136; Range: 83-110; Abnormal: Above high normal; Units: MG/DL; Status: F Radiology Order: CT Head Without Contrast Test: CT Head Without Contrast REASON FOR EXAMINATION: numbness RLL, RUL, R face; CT HEAD WITHOUT CONTRAST:; ; HISTORY: Facial numbness.; ; COMPARISON: 02/25/2014.; ; Areas of decreased attenuation are present in the periventricular white matter.; This represents small vessel ischemic disease. There is no intraparenchymal; hemorrhage, mass or midline shift. The ventricular system and cortical sulci are; dilated consistent with mild volume loss. There is no extracerebral collection.; The visualized sinuses are clear.; ; IMPRESSION:; ; 1. Small vessel ischemic disease.2. Mild volume loss.; ; ; Signed by; Roby Marie MD 04/01/2016 11:43 A; Radiology Order: Chest, 1 View Test: Chest, 1 View REASON FOR EXAMINATION: Chest Pain; Clinical: Chest pain .; ; Comparison: 09/01/2014 .; ; Findings:; The mediastinum and cardiac silhouette are stable and within normal limits for; portable technique. The lung dawson are clear without acute consolidation,; effusion, or pneumothorax. 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; : 1925 Requested By: CELE Sherwood; Order Number: [id number] Reading MD: Bibiana Gacria; Measurements; Intervals [place]; Rate: 66 P: 50; WA: 146 QRS: -1; QRSD: 101 T: 64; QT: 404; QTc: 426; Interpretive Statements; SINUS RHYTHM; SEPTAL MYOCARDIAL INFARCTION, OF INDETERMINATE AGE; NSTTW ABNORMALITY; Electronically Signed On 04-01-2016 19:53:50 EST by Bibiana Garcia; Radiology Order: -MRA-Brain without contrast Test: -MRA-Brain without contrast REASON FOR EXAMINATION: facial numbness, right UE, RLE ; ; CLINICAL HISTORY: FACIAL NUMBNESS; TECHNIQUE: Three dimensional ifra-ki-qwoitd angiography is performed of the [place] of [place]. The mele; dy was performed without IV contrast agent.; FINDINGS: The supraclinoid portions of the internal carotid arteries are of normal shape. The normal; bifurcation is seen. The middle cerebral arteries are unremarkable in appearance. The posterior circu; lation is visualized and shows no evidence of occlusion or aneurysm formation. The basilar tip is see; n and shows no aneurysm formation. There is no evidence of beading to suggest vasculitis.; IMPRESSION:; MRA of the [place] Hernandez is within normal limits.; Thank you for your kind referral of this patient.; ; Radiology Order: Duplex,carotid (complete) Test: Duplex,carotid (complete) REASON FOR EXAMINATION: Right sided numbness; Clinical: Right-sided weakness with acute cerebral infarction.; ; Technique: Carrasquillo scale and color Doppler evaluation using linear high frequency; transducer; ; Findings:; Two-dimensional carrasquillo scale and color images demonstrate intimal thickening of the; bilateral common carotid arteries along with mixed plaque material in the left; common carotid artery and within the right carotid bulb and proximal internal; carotid artery. Normal laminar flow is appreciated without significant; narrowing. Color Doppler interrogation demonstrates normal arterial wave; patterns and velocities with no significant spectral broadening. Normal flow; direction is appreciated in the bilateral vertebral arteries.; ; RIGHT (cm/s) LEFT (cm/s); ; ICA peak systolic velocity 83.4 70.9; ICA diastolic velocity 13.2 12.1; ECA peak systolic velocity 98.8 65.6; CCA peak systolic velocity 74.5 114.9; ICA/CCA ratio 1.12 0.62; ; Impression:; Based on set standards narrowing falls within the less than 50% range bilaterally; (right greater than left).; ; ; Signed by; Rohit Hidalgo MD 04/01/2016 06:51 P; Radiology Order: MRI Brain without Contrast Test: MRI Brain without Contrast REASON FOR EXAMINATION: numbness r face, RUE, RLE; ; CLINICAL HISTORY: Facial numbness.; ; TECHNIQUE: MRI of the brain was performed utilizing multiple sequences in axial, coronal and sagittal; planes without IV contrast material.; FINDINGS:; Note is made of multiple focal areas of restricted diffusion involving left thalamus at left occipita; l lobe. This includes a large area in the occipital lobe measuring approximately 15 mm. 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 The corpus callosum and cerebellar to; nsils are of normal configuration and position. There are no intra or extra-axial collections. There; is no mass effect or midline shift. There is no evidence of hematoma formation. There is no hydroceph; alus.; The visualized arterial structures demonstrate normal appearing flow voids. The seventh and eighth ne; rve bundles are visualized and are unremarkable in appearance.; Foci of T2/FLAIR hyperintensity are noted in the bilateral periventricular and subcortical white neeraj; er compatible with mild chronic white matter ischemic changes.; Generalized proportionate dilatation of ventricles and sulci is present compatible with age-appropria; te parenchymal atrophy.; IMPRESSION:; 1. Multiple focal areas of restricted diffusion involving left thalamus at left occipital lobe. This; includes a larger subcortical area in the occipital lobe measuring approximately 15 mm. 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 Generalized age-appropriate parenchymal atrophy.; 3. Mild chronic white matter microvascular ischemic changes.; ; Discussed with Dr. Braun.; ; Thank you for your kind referral of this patient. We appreciate the opportunity to participate in [facility]; s patient's care.; ; ; Radiology Order: ELECTROCARDIOGRAM ADULT Test: ELECTROCARDIOGRAM ADULT REASON FOR EXAMINATION: ? 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 fg 04/02 17:18 Patient left the ED. ml6 Signatures: Dispatcher [employer] EDMS Javad Bryson, RN RN Martine Thorpe, Reg Reg gb Josue Cortes, RN RN dy Fawad Masters, ENGINEERING GEOLOGIST ENGINEERING GEOLOGIST kb5 Ashley Hsu RN RN jjr Lowe, Matthew RN RN ml6 Shannan Zapata, ENGINEERING GEOLOGIST ENGINEERING GEOLOGIST ct3 Mary LedesmaRN VANDANA pml Thelma Meehan dem1 Nelson Yepez mm15 Cele Braun MD MD fg Corrections: (The following items were deleted from the chart) 04/01 09:33 09:29 Pulse 94bpm; Resp 18bpm; Pulse Ox 96% RA; Temp 96.7F Oral; Height 5 ft. 2 in. dem1 Reported; dem1 Chart Complete MTDD
[2016-04-04] MEDS: ROSUVASTATIN 10 MG TAB (CRESTOR) PO SCH (20:37)
[2016-04-05] VITALS: BP 139/65
[2016-04-05 04:00] VITALS: BP 148/68
[2016-04-05 05:26] LABS: MEAN CORPUSCULAR HGB CONC 33.5 g/dl (32.0-36.5); MEAN CORPUSCULAR VOLUME 95.3 fl (80.0-96.0); RED CELL DISTRIBUTION WIDTH 12.6 % (11.5-14.5); WHITE BLOOD COUNT 8.1 K/mm3 (4.0-10.0)
[2016-04-05] MEDS: LevoFLOXacin 250 MG TABLET PO SCH (05:36)
[2016-04-05 05:50] LABS: CALCIUM LEVEL 8.4 MG/DL (8.8-10.2); CREATININE FOR GFR 1.34 MG/DL (0.55-1.02); GLOMERULAR FILTRATION RATE 39.7 (>32); POTASSIUM SERUM 4.5 MEQ/L (3.5-5.1)
[2016-04-05 07:18] VITALS: BP 147/67
[2016-04-05] MEDS: HumaLOG INSULIN (NovoLOG) PER UNIT SC SCH ×4 (08:36→20:37)
[2016-04-05] MEDS: **hydrALAZINE** 10 MG TAB PO SCH ×2 (08:37→20:28)
[2016-04-05] MEDS: amLODIPine 10 MG TAB PO SCH (08:37)
[2016-04-05] MEDS: CLOPIDOGREL 75 MG TAB PO SCH (08:37)
[2016-04-05] MEDS: traMADol 50 MG TAB PO SCH ×4 (08:38→20:27)
--- NOTE | 2016-04-05 10:36 | IPNPDOC ---
Subjective Date Seen The patient was seen on 04/05/16. Subjective Chief Complaint/HPI The patient is a 89-year-old female admitted with a reason for visit of Rt Sided Weakness. Events since last encounter Scheduled to have echo performed today. She has not yet been cleared for home safety by PT/OT. Continues to report right sided facial "numbness" but has no objective focal deficits. General: Reports: Normal Appetite, Denies: Chills, Fatigue, Malaise, Night Sweats Pulmonary: Denies: Cough, Dyspnea, Other Symptoms, Pleuritic Chest Pain Cardiovascular: Denies: Chest Pain, Lt Headedness, Orthopnea, Palpitations, Paroxysmal Noc. Dyspnea Gastrointestinal: Denies: Abdominal Pain, Constipation, Diarrhea, Nausea, Vomiting Musculoskeletal: Denies: Back Pain, Joint Pain, Muscle Pain, Neck Pain, Spasms Neurological: Reports: Incoordination (chronic ambulatory problems), Numbness ( subjective), Denies: Confusion, Weakness Objective Physical Examination General Exam: Positive: Alert, Cooperative, No Acute Distress Eye Exam: Positive: Conjunctiva & lids normal, EOMI, PERRLA, Negative: Sclera icteric ENT Exam: Positive: Atraumatic, Mucous membr. moist/pink, Pharynx Normal Neck Exam: Positive: Supple, Negative: thyromegaly Chest Exam: Positive: Clear to auscultation, Normal air movement, Negative: Diminished, Rales, Rhonchi, Wheezing Heart Exam: Positive: Murmurs, Normal S1, Normal S2, Rate Normal, Regular Rhythm, Rubs Abdomen Exam: Positive: Normal bowel sounds, Soft, Tenderness, Negative: Hepatospenomegaly Extremity Exam: Positive: Normal pulses, Negative: Clubbing, Edema Skin Exam: Positive: Nl turgor and temperature Neuro Exam: Positive: Cranial Nerves 3-12 NL, Normal Speech (slightly tangential), Normal Tone, Other (Dysdidochokinesia negative, proprioception intact bilaterally in LE, finger to nose test negative, ), Reflexes 2+ (patellar , achilles ), Sensation Intact, Strength at 5/5 X4 ext Psych Exam: Positive: Mental status NL, Mood NL Assessment /Plan Problems (1) Numbness on right side Status: Acute Problem Text: Echo being performed today. MRI Brain: "Multiple focal areas of restricted diffusion involving left thalamus at left occipital lobe. This includes a larger subcortical area in the occipital lobe measuring approximately 15 mm. This is compatible with acute lacunar infarcts likely of embolic nature. Generalized age-appropriate parenchymal atrophy. Mild chronic white matter microvascular ischemic changes." Pt has 2 day history of RLE numbness and weakness and 1 day hx of R face and RUE numbness with associated slurring of speech without pain. The pt has hx of IDDM and HTN which are both well controlled per her daughter, the primary caregiver. Noncontrast CT of head was performed in the ED that showed no evidence of acute CVA. On physical exam, pt had no focal neurologic signs and her sensation was intact bilaterally. Pt's muscle strength was also equal bilaterally. No carotid bruits were heard. At this time, we suspect the pt had a transient ischemic attack vs seizures vs complex migraine. (2) IDDM (insulin dependent diabetes mellitus) Status: Chronic Problem Text: start pt on sliding scale insulin. (3) Anxiety Status: Chronic Problem Text: Will d/c home chlordiazepoxide for now. (4) HTN (hypertension) Status: Chronic Problem Text: Continue current htn medications (5) CKD (chronic kidney disease) Status: Chronic Problem Text: Monitor chemistries daily AM. (6) History of DVT (deep vein thrombosis) Status: Chronic (7) DVT prophylaxis Status: Acute Problem Text: Enoxaparin, TEDS, Sequentials (8) UTI (urinary tract infection) due to Enterococcus Status: Acute Problem Text: + for e. coli. see Micro Plan/VTE VTE Prophylaxis Ordered?: Yes Plan Diet: Continue Current Activity: Encourage Ambulation Therapy: PT Diagnostics: Repeat Labs in AM Attending attestation: I saw and evaluated the patient, and I agree with the plan of care as discussed and documented by the resident. Jose Ramon Catherine MD VS, I&O, 24H, [facility] Vital Signs/I&O Vital Signs Date Time Temp Pulse Resp B/P Pulse Ox O2 Delivery O2 Flow Rate FiO2 04/05/16 08:38 18 Room Air 04/05/16 08:37 61 04/05/16 08:37 147/67 04/05/16 07:18 96.0 95 I&O- Last 24 Hours up to 6 AM 04/05/16 06:00 Intake Total 960 ml Output Total 690 ml Balance 270 ml Laboratory Data 24H LABS Laboratory Tests 2 04/04/16 11:58: Bedside Glucose (Misc Panel) 167H 04/04/16 16:52: Bedside Glucose (Misc Panel) 158H 04/04/16 20:36: Bedside Glucose (Misc Panel) 127H 04/05/16 05:08: Anion Gap 7L, Blood Urea Nitrogen 29H, Creatinine 1.34H, Sodium Level 140, Potassium Level 4.5, Chloride Level 101, Carbon Dioxide Level 32, Calcium Level 8.4L, Glomerular Filtration Rate 39.7 CBC/BMP Laboratory Tests 04/05/16 05:08 Calcium Level 8.4 L, Red Blood Count 3.70 L, Mean Corpuscular Volume 95.3, Mean Corpuscular Hemoglobin 32.0, Mean Corpuscular Hemoglobin Concent 33.5, Red Cell Distribution Width 12.6 Microbiology Microbiology 04/01/16 Urine Culture - Final, Complete Escherichia Coli TIMO PASCUAL DO Apr 05, 2016 10:36 JOSE RAMON CATHERINE MD Apr 10, 2016 12:16
[2016-04-05] MEDS: ASPIRIN 325 MG TAB PO SCH (14:39)
[2016-04-05 15:00] VITALS: BP 150/68
[2016-04-05 18:00] VITALS: BP 168/72
[2016-04-05] MEDS: ROSUVASTATIN 10 MG TAB (CRESTOR) PO SCH (20:27)
[2016-04-05 22:00] VITALS: BP 136/62
[2016-04-06 02:00] VITALS: BP 141/73
[2016-04-06] MEDS: LevoFLOXacin 250 MG TABLET PO SCH (05:29)
[2016-04-06 06:00] VITALS: BP 142/87
[2016-04-06 06:16] LABS: MEAN CORPUSCULAR HEMOGLOBIN 31.7 pg (27.0-33.0); MEAN CORPUSCULAR HGB CONC 33.2 g/dl (32.0-36.5); MEAN CORPUSCULAR VOLUME 95.5 fl (80.0-96.0); RED CELL DISTRIBUTION WIDTH 12.6 % (11.5-14.5); WHITE BLOOD COUNT 7.9 K/mm3 (4.0-10.0)
[2016-04-06 06:27] LABS: CALCIUM LEVEL 8.6 MG/DL (8.8-10.2); CREATININE FOR GFR 1.18 MG/DL (0.55-1.02)
--- NOTE | 2016-04-06 06:58 | EEG ---
DATE OF EE04/04/2016 REFERRING PHYSICIAN: Dr. Monet Reddy DIAGNOSIS: Loss of bowel control, rule out seizure. EEG NUMBER: [id number] HISTORY: Patient is an 89-year-old woman who was admitted at [facility] due to right-sided face, arm and leg numbness. This EEG was done to rule out epileptic potential. She is currently on hydralazine, tramadol, amlodipine, Crestor, Plavix, levofloxacin, etc. TECHNICAL DESCRIPTION: This digital EEG was recorded by 21 scalp, ear and two EKG electrodes and was reviewed in bipolar and referential montages following reformatting in 10-20 international electrode placement system. INTERPRETATION: Patient was noted to be in awake and drowsy states during this EEG. Resting awake background consisted of 7-8 hertz theta activity measuring 15-40 microvolts in amplitude, which was symmetric and reactive to eye opening. Attenuation of posterior dominant rhythm was seen during transition into drowsiness. Stage 1 and 2 sleep were reviewed and were symmetric bilaterally. Hyperventilation could not be performed. Photic stimulation remained unremarkable. EKG revealed frequent previous premature ventricular contractions (PVCs). T-waves were visible most of the time. No focal, lateralizing or epileptiform abnormalities were seen. No clinical or electrographic seizures were recorded. CONCLUSION: This EEG in awake, drowsy states, stage 1 and 2 sleep is mildly abnormal due to presence of mild generalized slowing and disorganization of background consistent with nonspecific diffuse cerebral dysfunction such as seen in dementia and encephalopathy due to multiple potential causes. No epileptiform abnormalities were seen. Clinical correlation is recommended.
[2016-04-06] MEDS: HumaLOG INSULIN (NovoLOG) PER UNIT SC SCH ×2 (08:42→12:51)
[2016-04-06] MEDS: ASPIRIN 325 MG TAB PO SCH (08:42)
[2016-04-06] MEDS: traMADol 50 MG TAB PO SCH ×2 (08:44→12:51)
[2016-04-06] MEDS: amLODIPine 10 MG TAB PO SCH (08:44)
[2016-04-06 08:45] VITALS: BP 168/72
[2016-04-06] MEDS: **hydrALAZINE** 10 MG TAB PO SCH (08:45)
[2016-04-06 10:00] VITALS: BP 136/60
[2016-04-06] MEDS ORDERED: ASPI325T PO (10:11)
[2016-04-06] MEDS ORDERED: ROSU10TA PO (10:11)
--- NOTE | 2016-04-07 07:02 | ECHO ---
DATE OF PROCEDURE: 04/05/2016 DATE OF : 1925 AGE: 89 REFERRING PROVIDER: Dr. Jose Ramon Catherine. PATIENT LOCATION: Room 4231. REASON FOR ECHOCARDIOGRAM: Cerebrovascular accident (CVA). 2D MEASUREMENTS: IVS: 1.2 cm LV: 3.9 cm LVPW: 1.2 cm LA: 4.5 cm Aorta: 3.4 cm IVC: 1.9 cm DOPPLER MEASUREMENTS: Peak velocity across the aortic valve: 2.0 m/s Peak velocity across the LVOT: 1.1 m/s Peak gradient across the aortic valve: 15.3 mmHg Mean gradient across the aortic valve: 9.0 mmHg Aortic valve area: 1.6 cm2 Mitral E: 1.4 Mitral A: 1.4 Ratio 1.0 Peak gradient across the mitral valve: 9.0 mmHg Mean gradient across the mitral valve: 3.0 mmHg Tricuspid valve velocity: 1.4 m/s 2D COMMENTS: 1. Normal left ventricular size, wall thickness and normal global left ventricular systolic function with an LVEF estimated at 65% to 70%. 2. Mildly enlarged left atrium. The right atrium appeared to be mildly enlarged in limited views. Normal right ventricle. 3. The atrial septum appeared to be normal without evidence of defect or shunt. 4. Normal aortic root. 5. No pericardial effusion seen. 6. Minimally calcified aortic valve with normal leaflet motion. Moderately calcified mitral annulus with normal anterior mitral valve leaflet motion. Normal tricuspid valve and pulmonic valve. The proximal pulmonary artery branches were not well visualized. 7. The inferior vena cava was normal in size, central venous pressure is most likely normal. DOPPLER: It detects mild aortic regurgitation, mild mitral regurgitation, trace tricuspid regurgitation. Abnormal relaxation pattern was noted across the mitral valve annulus consistent with a delayed relaxation. IMPRESSION: 1. Normal global left ventricular systolic function. There are features of left ventricular diastolic dysfunction manifested by abnormal relaxation. 2. Aortic valve sclerosis with mild aortic regurgitation and mild aortic stenosis. 3. Moderate mitral annulus calcification with mildly enlarged left atrium, mild mitral regurgitation and probably mild mitral stenosis. 4. Trace tricuspid regurgitation with a normal calculated pulmonary artery systolic pressure. The right atrium appeared to be mildly enlarged in limited views but no intracardiac shunt detected.
--- NOTE | 2016-04-21 04:47 | DS.PDOC ---
Discharge Summary General Date of Admission Apr 02, 2016 at 11:56 Date of Discharge Apr 06, 2016 at 14:32 Primary Care Physician: MARQUISE REDDY MD Attending Physician: VITO CATHERINE MD Specialist/Consultants Involve: NARA HOOKS MD Discharge Summary PROCEDURES PERFORMED DURING STAY: 1. Brain MRI/MRA 2. Carotid Duplex us 3. TTE ADMITTING DIAGNOSES: 1. TIA 2. Right Facial Numbness PRIMARY DISCHARGE DIAGNOSES: 1. Left thalamic and occipital lobe strokes SECONDRY DISCHARGE DIAGNOSES: 1. T2DM 2. CKD, Stage III 3. Dementia 4. BILL 5. HTN 6. Anxiety 7. Depression COMPLICATIONS/CHIEF COMPLAINT: Rt Sided Weakness. HISTORY OF PRESENT ILLNESS: Pt is a 89 y/o F with a pmhx of dementia, HTN, IDDM-controlled, colon and uterine cancer, CKD, presenting with 2 day history of RLE numbness and R face, RUE numbness beginning this AM. The pt was seen yesterday (03/31) at [facility] ED for RLE numbness and discharged with a ddx of spinal stenosis. She returned today because she had additional R face and RUE numbness. This has never happened before. Pt describes this sensation as her leg and arms feeling heavy and denies any pain, tingling, or burning. Pt denies any trauma or illness around the onset of her RLE numbness and states she was just standing in the kitchen reaching when her leg suddenly felt heavy and numb. The pt reports still being able to move her legs and walk. At baseline, the pt uses a walker to ambulate but is able to easily complete all of her ADLs. Pt reports the numbness was initially her entire leg but is now just numb on the lateral aspect of her RLE. Pt denies any associated LOC, seizures, chest pain, palpitations, dyspnea, syncope, changes in vision, facial droop, unsteadiness, light-headedness. Pt has urge incontinence at baseline. Pt also has c/o of R face and RUE numbness that began acutely this AM. Her daughter reports that the pt had associated slurring of speech that has since improved. Pt reports full ROM of hands but describes her arms feeling like a "stone." HOSPITAL COURSE:Perla was admitted to the PCU for continuous cardiac monitoring. No arrhythmia was observed. MRI/A demonstrated findings consistent with lacunar infarcts. Echocardiogram was pending at the time of discharge. Neurology was consluted for further recommendations. Per their recommendation,s she as started on full dose ASA, and close follow up was arranged at discharge. Her symptoms resolved by the time of discharge, and she was cleared by PT/OT for safe discharge home. The remainder of her chronic medical comorbidities were manaed perher home regimen, and she did not experience any acute problems related to these conditions during this admission. DISCHARGE MEDICATIONS: Please see below. ALLERGIES: Please see below. PHYSICAL EXAMINATION ON DISCHARGE: HEENT: Extraocular muscles are intact. No facial weakness. Tongue and uvula are midline. Heart: Regular rate and rhythm. Lungs: Clear to auscultation. Abdomen: Soft, nontender, nondistended EXT: Decreased pulses in her feet. No clubbing, no edema Neurological: Alert, oriented to place and person. Speech is normal. She has normal comprehension and repetition. 5/5 strength in all four extremities. Deep tendon reflexes are 1+ in arms and absent in legs. She has decreased cold, vibration sensation in her both legs, right arm and face. Gait could not be tested. There is no dysmetria. LABORATORY DATA: Please see below. IMAGING: BRAIN MRI: 1. Multiple focal areas of restricted diffusion involving left thalamus at left occipital lobe. This includes a larger subcortical area in the occipital lobe measuring approximately 15 mm. This is compatible with acute lacunar infarcts likely of embolic nature. 2. Generalized age-appropriate parenchymal atrophy. 3. Mild chronic white matter microvascular ischemic changes. BRAIN MRA: MRA of the [place] is within normal limits. BILATERAL CAROTID DUPLEX: Based on set standards narrowing falls within the less than 50% range bilaterally (right greater than left). DISPOSITION: 01 Home, Self-Care. DISCHARGE INSTRUCTIONS: 1. Follow up with Dr. Reddy within a week. 2. Follow up with Dr. Hooks within a week. 3. Take medications as prescribed. 4. Seek evaluation in the ED or clinic if symptoms return or new symptoms develop. ITEMS TO FOLLOWUP ON ON OUTPATIENT: 1. Echocardiogram DISCHARGE CONDITION: Improved. TIME SPENT ON DISCHARGE: Greater than 35 minutes. Attending attestation: I saw and evaluated the patient on the day of discharge, and agree with the discharge plan of care as discussed and documented by the resident. Vito Catherine MD Laboratory Data Labs 24H Item Value Date Time White Blood Count 7.9 K/mm3 04/06/16546 Red Blood Count 3.58 M/mm3 L 04/06/16546 Hemoglobin 11.4 g/dl L 04/06/16546 Mean Corpuscular Hemoglobin 31.7 pg 04/06/16546 Mean Corpuscular Hemoglobin Concent 33.2 g/dl 04/06/16546 Red Cell Distribution Width 12.6 % 04/06/16546 Platelet Count 278 k/mm3 04/06/16546 Hematocrit 34.2 % L 04/06/16546 Mean Corpuscular Volume 95.5 fl 04/06/16546 Sodium Level 140 MEQ/L 04/06/16546 Potassium Level 4.0 MEQ/L 04/06/16546 Chloride Level 102 MEQ/L 04/06/16546 Carbon Dioxide Level 30 MEQ/L 04/06/16546 Anion Gap 8 MEQ/L 04/06/16546 Blood Urea Nitrogen 30 MG/DL H 04/06/16546 Creatinine 1.18 MG/DL H 04/06/16546 Glomerular Filtration Rate 46.0 04/06/16546 Fasting Glucose 184 MG/DL H 04/06/16546 Calcium Level 8.6 MG/DL L 04/06/16546 Discharge Medications Scheduled (Lee Escoto 10-15 %) 1 Cre Cre CRE TOP TID (Reported) APPLY TO BACK Acetaminophen (Tylenol) 325 Mg Tab 650 MG PO TID (Reported) Amlodipine Besylate (Norvasc) 5 Mg Tab 5 MG PO DAILY (Reported) Aspirin (Aspirin) 325 Mg Tab 325 MG PO DAILY Carboxymethylcellulose Sodium (Refresh Tears) 0.5 % Scott 0.5 % OU BID (Reported ) Chlordiazepoxide (Chlordiazepoxide HCl) 10 Mg Cap 10 MG PO DAILY (Reported) Hctz/Spironolactone (Aldactazide 25-25 mg) 1 Tab Tab 2 TAB PO DAILY (Reported) Hydralazine HCl (Hydralazine HCl) 10 Mg Tab 10 MG PO BID (Reported) Insulin Human NPH (Humulin N) 1 Units/0.01 Ml Susp 18 UNITS SC DAILY (Reported ) Insulin Human NPH (Humulin N) 1 Units/0.01 Ml Susp 15 UNITS SC QPM (Reported) Nystatin (Nystatin Powder) 100,000 Unit/Gm Pow 0 TOP DAILY (Reported) APPLY UNDER BREASTS Rosuvastatin (Crestor) 10 Mg Tab 20 MG PO QHS Tramadol HCl (Ultram) 50 Mg Tab 50 MG PO QID (Reported) Allergies Coded Allergies: Penicillins (Unverified Allergy, Unknown, 05/16/12) Penicillins Cross Reactors (Unverified Allergy, Unknown, 05/16/12) Amoxicillin (Unverified Adverse Reaction, Intermediate, RASH, 03/07/14) TIMO PASCUAL DO Apr 21, 2016 04:46 VITO CATHERINE MD Apr 24, 2016 14:49
== END 2016-04-06 14:32 | disposition home or self-care (01) | DRG 65 ==
LOC: M ED 09:27 → M ED INP 15:16 → OBSVTOIN 04-02 11:56 → M PCU 04-02 17:21 → M MSPAV 04-05 14:52
PROVIDERS: ADMIT Internal Medicine; ATTEND Family Medicine
DX: I63.49 Cerebral infarction due to embolism of other cerebral artery (principal); N39.0 Urinary tract infection, site not specified; F03.90 Unspecified dementia, unspecified severity, without behavioral disturbance, psychotic disturbance, mood disturbance, and anxiety; E11.9 Type 2 diabetes mellitus without complications; N18.3 Chronic kidney disease, stage 3 (moderate); G47.33 Obstructive sleep apnea (adult) (pediatric); R20.0 Anesthesia of skin; F32.9 Major depressive disorder, single episode, unspecified; N39.41 Urge incontinence; F41.9 Anxiety disorder, unspecified; H35.30 Unspecified macular degeneration; M85.80 Other specified disorders of bone density and structure, unspecified site; K21.9 Gastro-esophageal reflux disease without esophagitis; N32.81 Overactive bladder; K58.9 Irritable bowel syndrome, unspecified; I12.9 Hypertensive chronic kidney disease with stage 1 through stage 4 chronic kidney disease, or unspecified chronic kidney disease; Z85.038 Personal history of other malignant neoplasm of large intestine; Z85.42 Personal history of malignant neoplasm of other parts of uterus; Z79.4 Long term (current) use of insulin; Z79.891 Long term (current) use of opiate analgesic; Z79.899 Other long term (current) drug therapy; Z88.0 Allergy status to penicillin; Z90.49 Acquired absence of other specified parts of digestive tract; Z92.21 Personal history of antineoplastic chemotherapy; Z90.710 Acquired absence of both cervix and uterus; Z86.718 Personal history of other venous thrombosis and embolism; G43.109 Migraine with aura, not intractable, without status migrainosus; R56.9 Unspecified convulsions; B96.20 Unspecified Escherichia coli [E. coli] as the cause of diseases classified elsewhere

== ENCOUNTER → 2017-03-20 | Outpatient (REF) | payer MEDICARE, OTHER ==
[2017-03-20 13:38] LABS: ANION GAP 7 MEQ/L (8-16); BLOOD UREA NITROGEN 38 MG/DL (7-18); CALCIUM LEVEL 9.5 MG/DL (8.8-10.2); CARBON DIOXIDE LEVEL 29 MEQ/L (21-32); CHLORIDE LEVEL 103 MEQ/L (98-107); CREATININE FOR GFR 1.41 MG/DL (0.55-1.30); GLOMERULAR FILTRATION RATE 37.4 (>32); GLUCOSE, FASTING 174 MG/DL (70-100); POTASSIUM SERUM 4.4 MEQ/L (3.5-5.1); SODIUM LEVEL 139 MEQ/L (136-145)
[2017-03-20 13:47] LABS: ESTIMATED AVERAGE GLUCOSE 166 MG/DL (60-110); HEMOGLOBIN A1c 7.4 %
[2017-03-20 14:23] LABS: MAU/CREAT RATIO 213.8 MCG/MG (0.0-30.0)
== END ==
LOC: M SFHCPLAZ 10:50
DX: E11.9 Type 2 diabetes mellitus without complications (principal); I10 Essential (primary) hypertension; Z23 Encounter for immunization
CPT/HCPCS: 83036